=== PATIENT | female | born 1955 | race Caucasian/White ===

== ENCOUNTER 2022-01-04 10:46 | Emergency (ER) | payer OTHER, BC ==
--- OUTSIDE RECORDS SUMMARY | 2022-01-04 10:52 | XMS REPORT | Continuity of Care Document ---
:1955 Author Organization [facility] t Address [address] [place] [address] Dr. Del[address]. [address] [place] [address] Care Team Providers Name Role Phone Rodney Zavala MD Primary Care Physician Rodney Zavala MD Attending Clinician RODNEY ZAVALA Attending Clinician Unavailable Bridgett MÉNDEZ Attending Clinician Unavailable Bridgett Méndez MD Attending Clinician JOSÉ BORRERO Attending Clinician Unavailable Isaac TEXTURE ARTIST Attending Clinician ISAAC Attending Clinician Unavailable Lab, Fam Pob I Attending Clinician Unavailable José Borrero DO Attending Clinician Doctor Unassigned, Name Attending Clinician Unavailable 1, Lab Attending Clinician Unavailable Annemarie Petty MD Attending Clinician Pob1, Care Clinic Attending Clinician Unavailable Anene HAYLEY Attending Clinician RODNEY ZAVALA Admitting Clinician Unavailable Payers Payer Name Policy Type Policy Number Effective Date Expiration Date S ource Problems Condition Condition Condition Status Onset Resolution Last Treating Co mments Source Name Details Category Date Date Treatment Clinician Date Depression Depression Disease Active 2015-09 U nivers 0-25 ity of 00:00: [place] 00 [facility] S/P S/P Disease Active Univers arthroscop arthroscop 5-25 it y [place] [facility] Essential Essential Disease Active Uni vers hypertensi hypertensi 4-19 it y of on on 00:00: [place] 00 [facility] Allergies, Adverse Reactions, Alerts Allergy Allergy Status Severity Reaction(s) Onset Inactive Treating Comm ents Source Name Type Date Date Clinician Zoster Propensi Active Rash Univers Vaccine ty to 717 ity of Live adverse 00:00: [place] reaction 00 Medical s Branch ZOSTER DRUG Active Rash Univers VACCINE INGREDI 04-08 ity of LIVE 00:00: [place] 00 Medical Branch Citalopr Propensi Active Unknown - 2014-09 Uni vers am ty to See comments 09-24 ity of adverse 00:00: [place] reaction 00 Medical s Branch CITALOPR DRUG Active Unknown-Cmnt 2014-09 Un alicja AM INGREDI 09-24 ity of 00:00: Medical Branch Social History Social Habit Start Date Stop Date Quantity Comments Source Exposure to Not sure University of SARS-CoV-2 [facility] (event) Branch History of Cigarette Smoker Universi ty of tobacco use [facility] History SDOH University o f Alcohol Frequency [facility] edical Branch History SDOH University o f Alcohol Std [facility] Drinks Branch History SDOH University o f Alcohol Binge [place] [facility] Alcohol intake 2021-07-24 2021-07-24 0 /d University of 00:00:00 00:00:00 [facility] Tobacco use and 2015-11-08 2015-11-08 Never used Universit y of exposure 00:00:00 00:00:00 [facility] Tobacco Comment 2015-11-08 2015-11-08 smoked on and Univer sity of 00:00:00 00:00:00 off; quit 15 y [facility] Alcohol Comment 2015-11-08 2015-11-08 occasional Universit y of 00:00:00 00:00:00 [facility] Sex [birth year] Universit y of 00:00:00 00:00:00 [facility] Smoking Status Start Date Stop Date Source Former smoker 2021-01-23 00:00:00 2021-01-23 00:00:00 Universi ty of [facility] Medications Ordered Filled Start Stop Current Ordering Indication Dosage Frequency Signature Comments Components Source Medication Medication Date Date Medication? Clinician (SIG) Name Name atorblankatati Yes Take by Un alicja n calcium 4-06 mouth. ity of (ATORVASTAT 18:06: [place] IN ORAL) 48 Medical Branch atorvastati Yes Take by Un alicja n calcium 4-06 mouth. ity of (ATORVASTAT 18:06: [place] IN ORAL) 48 Medical Branch atorvastati Yes Take by Un alicja n calcium 4-06 mouth. ity of (ATORVASTAT 18:06: [place] IN ORAL) 48 Medical Branch atorvastati Yes Take by Un alicja n calcium 4-06 mouth. ity of (ATORVASTAT 18:06: [place] IN ORAL) 48 Medical Branch atorvastati Yes Take by Un alicja n calcium 4-06 mouth. ity of (ATORVASTAT 18:06: [place] IN ORAL) 48 Medical Branch atorvastati Yes Take by Un alicja n calcium 4-06 mouth. ity of (ATORVASTAT 18:06: [place] IN ORAL) 48 Medical Branch atorvastati Yes Take by Un alicja n calcium 4-06 mouth. ity of (ATORVASTAT 18:06: [place] IN ORAL) 48 Medical Branch atorvastati Yes Take by Un alicja n calcium 4-06 mouth. ity of (ATORVASTAT 18:06: [place] IN ORAL) 48 Medical Branch atorvastati Yes Take by Un alicja n calcium 4-06 mouth. ity of (ATORVASTAT 18:06: [place] IN ORAL) 48 Medical Branch atorvastati Yes Take by Un alicja n calcium 4-06 mouth. ity of (ATORVASTAT 13:06: [place] IN ORAL) 48 Medical Branch atorvastati Yes Take by Un alicja n calcium 4-06 mouth. ity of (ATORVASTAT 13:06: [place] IN ORAL) 48 Medical Branch atorvastati Yes Take by Un alicja n calcium 4-06 mouth. ity of (ATORVASTAT 13:06: [place] IN ORAL) 48 Medical Branch diazePAM 0 Yes [id number] 5mg Take 1 Uni vers (VALIUM) 5 4-06 tablet by ity of mg tablet 00:00: mouth 2 [place] 00 (two) Medical times Branch daily as needed for Agitation or Anxiety. diazePAM 2020-0 Yes [id number] 5mg Take 1 Uni vers (VALIUM) 5 4-06 tablet by ity of mg tablet 00:00: mouth (two) Medical times Branch daily as needed for Agitation or Anxiety. diazePAM 2020-0 Yes [id number] 5mg Take 1 Uni vers (VALIUM) 5 4-06 tablet by ity of mg tablet 00:00: mouth (two) Medical times Branch daily as needed for Agitation or Anxiety. diazePAM 2020-0 Yes [id number] 5mg Take 1 Uni vers (VALIUM) 5 4-06 tablet by ity of mg tablet 00:00: mouth (two) Medical times Branch daily as needed for Agitation or Anxiety. diazePAM 2020-0 Yes [id number] 5mg Take 1 Uni vers (VALIUM) 5 4-06 tablet by ity of mg tablet 00:00: mouth (two) Medical times Branch daily as needed for Agitation or Anxiety. diazePAM 2020-0 Yes [id number] 5mg Take 1 Uni vers (VALIUM) 5 4-06 tablet by ity of mg tablet 00:00: mouth (two) Medical times Branch daily as needed for Agitation or Anxiety. diazePAM 2020-0 Yes [id number] 5mg Take 1 Uni vers (VALIUM) 5 4-06 tablet by ity of mg tablet 00:00: mouth (two) Medical times Branch daily as needed for Agitation or Anxiety. diazePAM 2020-0 Yes [id number] 5mg Take 1 Uni vers (VALIUM) 5 4-06 tablet by ity of mg tablet 00:00: mouth (two) Medical times Branch daily as needed for Agitation or Anxiety. diazePAM 2020-0 Yes [id number] 5mg Take 1 Uni vers (VALIUM) 5 4-06 tablet by ity of mg tablet 00:00: mouth (two) Medical times Branch daily as needed for Agitation or Anxiety. diazePAM 1-0 Yes [id number] 5mg Take 1 Uni vers (VALIUM) 5 4-06 tablet by ity of mg tablet 00:00: mouth 2 (two) Medical times Branch daily as needed for Agitation or Anxiety. diazePAM 1-0 Yes [id number] 5mg Take 1 Uni vers (VALIUM) 5 4-06 tablet by ity of mg tablet 00:00: mouth 2 [place] 00 (two) Medical times Branch daily as needed for Agitation or Anxiety. diazePAM Yes Anxiety 5mg Take 1 Univ ers (VALIUM) 5 4-06 tablet by ity of mg tablet 00:00: mouth 2 [place] 00 (two) Medical times Branch daily as needed for Agitation or Anxiety. LISINOPRIL- 2019-0 Yes Essential 1{tbl} TAKE 1 Univers HYDROCHLORO 8-25 hypertensio TABLET BY ity of THIAZIDE 00:00: n MOUTH [place] 20-12.5 mg 00 EVERY Medical per tablet MORNING Branch LISINOPRIL- 2020-0 Yes [id number] 1{tbl} TAKE 1 Univers HYDROCHLORO 8-25 TABLET BY ity of THIAZIDE 00:00: MOUTH [place] 20-12.5 mg 00 EVERY Medical per tablet MORNING Branch LISINOPRIL- 2019-0 Yes [id number] 1{tbl} TAKE 1 Univers HYDROCHLORO 8-25 TABLET BY ity of THIAZIDE 00:00: MOUTH [place] 20-12.5 mg 00 EVERY Medical per tablet MORNING Branch LISINOPRIL- 2019-0 Yes [id number] 1{tbl} TAKE 1 Univers HYDROCHLORO 8-25 TABLET BY ity of THIAZIDE 00:00: MOUTH [place] 20-12.5 mg 00 EVERY Medical per tablet MORNING Branch LISINOPRIL- 2020-0 Yes [id number] 1{tbl} TAKE 1 Univers HYDROCHLORO 8-25 TABLET BY ity of THIAZIDE 00:00: MOUTH [place] 20-12.5 mg 00 EVERY Medical per tablet MORNING Branch LISINOPRIL- 2020-0 Yes [id number] 1{tbl} TAKE 1 Univers HYDROCHLORO 8-25 TABLET BY ity of THIAZIDE 00:00: MOUTH [place] 20-12.5 mg 00 EVERY Medical per tablet MORNING Branch LISINOPRIL- 2020-0 Yes [id number] 1{tbl} TAKE 1 Univers HYDROCHLORO 8-25 TABLET BY ity of THIAZIDE 00:00: MOUTH [place] 20-12.5 mg 00 EVERY Medical per tablet MORNING Branch LISINOPRIL- 2020-0 Yes [id number] 1{tbl} TAKE 1 Univers HYDROCHLORO 8-25 TABLET BY ity of THIAZIDE 00:00: MOUTH [place] 20-12.5 mg 00 EVERY Medical per tablet MORNING Branch LISINOPRIL- 2020-0 Yes [id number] 1{tbl} TAKE 1 Univers HYDROCHLORO 8-25 TABLET BY ity of THIAZIDE 00:00: MOUTH [place] 20-12.5 mg 00 EVERY Medical per tablet MORNING Branch LISINOPRIL- 2020-0 Yes [id number] 1{tbl} TAKE 1 Univers HYDROCHLORO 8-25 TABLET BY ity of THIAZIDE 00:00: MOUTH [place] 20-12.5 mg 00 EVERY Medical per tablet MORNING Branch LISINOPRIL- 2020-0 Yes [id number] 1{tbl} TAKE 1 Univers HYDROCHLORO 8-25 TABLET BY ity of THIAZIDE 00:00: MOUTH [place] 20-12.5 mg 00 EVERY Medical per tablet MORNING Branch LISINOPRIL- 2020-0 Yes [id number] 1{tbl} TAKE 1 Univers HYDROCHLORO 8-25 TABLET BY ity of THIAZIDE 00:00: MOUTH [place] 20-12.5 mg 00 EVERY Medical per tablet MORNING Branch LISINOPRIL- 2020-0 Yes [id number] 1{tbl} TAKE 1 Univers HYDROCHLORO 8-25 TABLET BY ity of THIAZIDE 00:00: MOUTH [place] 20-12.5 mg 00 EVERY Medical per tablet MORNING Branch LISINOPRIL- 2020-0 Yes [id number] 1{tbl} TAKE 1 Univers HYDROCHLORO 8-25 TABLET BY ity of THIAZIDE 00:00: MOUTH [place] 20-12.5 mg 00 EVERY Medical per tablet MORNING Branch LISINOPRIL- 2020-0 Yes [id number] 1{tbl} TAKE 1 Univers HYDROCHLORO 8-25 TABLET BY ity of THIAZIDE 00:00: MOUTH [place] 20-12.5 mg 00 EVERY Medical per tablet MORNING Branch LISINOPRIL- 2020-0 Yes [id number] 1{tbl} TAKE 1 Univers HYDROCHLORO 8-25 TABLET BY ity of THIAZIDE 00:00: MOUTH [place] 20-12.5 mg 00 EVERY Medical per tablet MORNING Branch LISINOPRIL- 2020-0 Yes [id number] 1{tbl} TAKE 1 Univers HYDROCHLORO 8-25 TABLET BY ity of THIAZIDE 00:00: MOUTH [place] 20-12.5 mg 00 EVERY Medical per tablet MORNING Branch LISINOPRIL- 2020-0 Yes [id number] 1{tbl} TAKE 1 Univers HYDROCHLORO 8-25 TABLET BY ity of THIAZIDE 00:00: MOUTH [place] 20-12.5 mg 00 EVERY Medical per tablet MORNING Branch LISINOPRIL- 2020-0 Yes [id number] 1{tbl} TAKE 1 Univers HYDROCHLORO 8-25 TABLET BY ity of THIAZIDE 00:00: MOUTH [place] 20-12.5 mg 00 EVERY Medical per tablet MORNING Branch LISINOPRIL- 2020-0 Yes [id number] 1{tbl} TAKE 1 Univers HYDROCHLORO 8-25 TABLET BY ity of THIAZIDE 00:00: MOUTH [place] 20-12.5 mg 00 EVERY Medical per tablet MORNING Branch LISINOPRIL- 2020-0 Yes [id number] 1{tbl} TAKE 1 Univers HYDROCHLORO 8-25 TABLET BY ity of THIAZIDE 00:00: MOUTH [place] 20-12.5 mg 00 EVERY Medical per tablet MORNING Branch LISINOPRIL- 2020-0 Yes [id number] 1{tbl} TAKE 1 Univers HYDROCHLORO 8-25 TABLET BY ity of THIAZIDE 00:00: MOUTH [place] 20-12.5 mg 00 EVERY Medical per tablet MORNING Branch LISINOPRIL- 2020-0 Yes [id number] 1{tbl} TAKE 1 Univers HYDROCHLORO 8-25 TABLET BY ity of THIAZIDE 00:00: MOUTH [place] 20-12.5 mg 00 EVERY Medical per tablet MORNING Branch LISINOPRIL- 2020-0 Yes [id number] 1{tbl} TAKE 1 Univers HYDROCHLORO 8-25 TABLET BY ity of THIAZIDE 00:00: MOUTH [place] 20-12.5 mg 00 EVERY Medical per tablet MORNING Branch LISINOPRIL- 2020-0 Yes [id number] 1{tbl} TAKE 1 Univers HYDROCHLORO 8-25 TABLET BY ity of THIAZIDE 00:00: MOUTH [place] 20-12.5 mg 00 EVERY Medical per tablet MORNING Branch LISINOPRIL- 2020-0 Yes [id number] 1{tbl} TAKE 1 Univers HYDROCHLORO 7-21 TABLET BY ity of THIAZIDE 00:00: MOUTH [place] 20-12.5 mg 00 EVERY Medical per tablet MORNING Branch LISINOPRIL- 2020-0 Yes [id number] 1{tbl} TAKE 1 Univers HYDROCHLORO 7-21 TABLET BY ity of THIAZIDE 00:00: MOUTH [place] 20-12.5 mg 00 EVERY Medical per tablet MORNING Branch LISINOPRIL- 2020-0 2020- No [id number] 1{tbl} TAKE 1 Univers HYDROCHLORO 7-21 08-25 TABLET BY it y of THIAZIDE 00:00: 00:00 MOUTH [place] 20-12.5 mg 00 :00 EVERY Medical per tablet MORNING Branch ciprofloxac 2019-0 2020- No [id number] 500mg Take 1 Univers in HCl 500 6-16 06-22 tablet by ity of mg tablet 00:00: 04:59 mouth [place] 00 :00 every 12 Medical (twelve) Branch hours for 5 days. ciprofloxac 2019-0 2020- No [id number] 500mg Take 1 Univers in HCl 500 6-16 06-22 tablet by ity of mg tablet 00:00: 04:59 mouth [place] 00 :00 every 12 Medical (twelve) Branch hours for 5 days. ciprofloxac 2019-0 2020- No [id number] 500mg Take 1 Univers in HCl 500 6-16 06-22 tablet by ity of mg tablet 00:00: 04:59 mouth [place] 00 :00 every 12 Medical (twelve) Branch hours for 5 days. LISINOPRIL- 2019-0 Yes [id number] 1{tbl} TAKE 1 Univers HYDROCHLORO 4-14 TABLET BY ity of THIAZIDE 00:00: MOUTH [place] 20-12.5 mg 00 EVERY Medical per tablet MORNING Branch LISINOPRIL- 2019-0 Yes [id number] 1{tbl} TAKE 1 Univers HYDROCHLORO 4-14 TABLET BY ity of THIAZIDE 00:00: MOUTH [place] 20-12.5 mg 00 EVERY Medical per tablet MORNING Branch LISINOPRIL- 2019-0 Yes [id number] 1{tbl} TAKE 1 Univers HYDROCHLORO 4-14 TABLET BY ity of THIAZIDE 00:00: MOUTH [place] 20-12.5 mg 00 EVERY Medical per tablet MORNING Branch LISINOPRIL- 2019-0 Yes [id number] 1{tbl} TAKE 1 Univers HYDROCHLORO 4-14 TABLET BY ity of THIAZIDE 00:00: MOUTH [place] 20-12.5 mg 00 EVERY Medical per tablet MORNING Branch LISINOPRIL- 2020-0 Yes [id number] 1{tbl} TAKE 1 Univers HYDROCHLORO 4-14 TABLET BY ity of THIAZIDE 00:00: MOUTH [place] 20-12.5 mg 00 EVERY Medical per tablet MORNING Branch LISINOPRIL- 2020-0 Yes [id number] 1{tbl} TAKE 1 Univers HYDROCHLORO 4-14 TABLET BY ity of THIAZIDE 00:00: MOUTH [place] 20-12.5 mg 00 EVERY Medical per tablet MORNING Branch LISINOPRIL- 2019-0 2020- No [id number] 1{tbl} TAKE 1 Univers HYDROCHLORO 4-14 07-21 TABLET BY it y of THIAZIDE 00:00: 00:00 MOUTH [place] 20-12.5 mg 00 :00 EVERY Medical per tablet MORNING Branch methylPREDN 2018-09 Yes [id number] 84mg Take 21 Univers ISolone 2-06 tablets by ity of (MEDROL, 00:00: mouth [place] CODY,) 4 mg 00 SEE-INSTRU Med ical tablets CTIONS. Branch follow package directions methylPREDN 2018-09 Yes [id number] 84mg Take 21 Univers ISolone 2-06 tablets by ity of (MEDROL, 00:00: mouth [place] CODY,) 4 mg 00 SEE-INSTRU Med ical tablets CTIONS. Branch follow package directions methylPREDN 2018-09 Yes [id number] 84mg Take 21 Univers ISolone 2-06 tablets by ity of (MEDROL, 00:00: mouth [place] CODY,) 4 mg 00 SEE-INSTRU Med ical tablets CTIONS. Branch follow package directions methylPREDN 2018-09 Yes [id number] 84mg Take 21 Univers ISolone 2-06 tablets by ity of (MEDROL, 00:00: mouth [place] CODY,) 4 mg 00 SEE-INSTRU Med ical tablets CTIONS. Branch follow package directions methylPREDN 2018-09 Yes [id number] 84mg Take 21 Univers ISolone 2-06 tablets by ity of (MEDROL, 00:00: mouth [place] CODY,) 4 mg 00 SEE-INSTRU Med ical tablets CTIONS. Branch follow package directions methylPREDN 2018-09 Yes [id number] 84mg Take 21 Univers ISolone 2-06 tablets by ity of (MEDROL, 00:00: mouth [place] CODY,) 4 mg 00 SEE-INSTRU Med ical tablets CTIONS. Branch follow package directions methylPREDN 2018-09 Yes [id number] 84mg Take 21 Univers ISolone 2-06 tablets by ity of (MEDROL, 00:00: mouth [place] CODY,) 4 mg 00 SEE-INSTRU Med ical tablets CTIONS. Branch follow package directions methylPREDN 2018-09 Yes [id number] 84mg Take 21 Univers ISolone 2-06 tablets by ity of (MEDROL, 00:00: mouth [place] CODY,) 4 mg 00 SEE-INSTRU Med ical tablets CTIONS. Branch follow package directions methylPREDN 2018-09 Yes [id number] 84mg Take 21 Univers ISolone 2-06 tablets by ity of (MEDROL, 00:00: mouth [place] CODY,) 4 mg 00 SEE-INSTRU Med ical tablets CTIONS. Branch follow package directions methylPREDN 2018-09 Yes [id number] 84mg Take 21 Univers ISolone 2-06 tablets by ity of (MEDROL, 00:00: mouth [place] CODY,) 4 mg 00 SEE-INSTRU Med ical tablets CTIONS. Branch follow package directions methylPREDN 2018-09 Yes [id number] 84mg Take 21 Univers ISolone 2-06 tablets by ity of (MEDROL, 00:00: mouth [place] CODY,) 4 mg 00 SEE-INSTRU Med ical tablets CTIONS. Branch follow package directions methylPREDN 2018-09 Yes [id number] 84mg Take 21 Univers ISolone 2-06 tablets by ity of (MEDROL, 00:00: mouth [place] CODY,) 4 mg 00 SEE-INSTRU Med ical tablets CTIONS. Branch follow package directions methylPREDN 2018-09 Yes [id number] 84mg Take 21 Univers ISolone 2-06 tablets by ity of (MEDROL, 00:00: mouth [place] CODY,) 4 mg 00 SEE-INSTRU Med ical tablets CTIONS. Branch follow package directions methylPREDN 2018-09 Yes [id number] 84mg Take 21 Univers ISolone 2-06 tablets by ity of (MEDROL, 00:00: mouth [place] CODY,) 4 mg 00 SEE-INSTRU Med ical tablets CTIONS. Branch follow package directions methylPREDN 2018-09 Yes [id number] 84mg Take 21 Univers ISolone 2-06 tablets by ity of (MEDROL, 00:00: mouth [place] CODY,) 4 mg 00 SEE-INSTRU Med ical tablets CTIONS. Branch follow package directions methylPREDN 2018-09 Yes [id number] 84mg Take 21 Univers ISolone 2-06 tablets by ity of (MEDROL, 00:00: mouth [place] CODY,) 4 mg 00 SEE-INSTRU Med ical tablets CTIONS. Branch follow package directions methylPREDN 2018-09 Yes [id number] 84mg Take 21 Univers ISolone 2-06 tablets by ity of (MEDROL, 00:00: mouth [place] CODY,) 4 mg 00 SEE-INSTRU Med ical tablets CTIONS. Branch follow package directions methylPREDN 2018-09 Yes [id number] 84mg Take 21 Univers ISolone 2-06 tablets by ity of (MEDROL, 00:00: mouth [place] CODY,) 4 mg 00 SEE-INSTRU Med ical tablets CTIONS. Branch follow package directions methylPREDN 2018-09 Yes [id number] 84mg Take 21 Univers ISolone 2-06 tablets by ity of (MEDROL, 00:00: mouth [place] CODY,) 4 mg 00 SEE-INSTRU Med ical tablets CTIONS. Branch follow package directions methylPREDN 2018-09 Yes [id number] 84mg Take 21 Univers ISolone 2-06 tablets by ity of (MEDROL, 00:00: mouth [place] CODY,) 4 mg 00 SEE-INSTRU Med ical tablets CTIONS. Branch follow package directions methylPREDN 2018-09 Yes [id number] 84mg Take 21 Univers ISolone 2-06 tablets by ity of (MEDROL, 00:00: mouth [place] CODY,) 4 mg 00 SEE-INSTRU Med ical tablets CTIONS. Branch follow package directions methylPREDN 2018-09 Yes [id number] 84mg Take 21 Univers ISolone 2-06 tablets by ity of (MEDROL, 00:00: mouth [place] CODY,) 4 mg 00 SEE-INSTRU Med ical tablets CTIONS. Branch follow package directions methylPREDN 2018-09 Yes [id number] 84mg Take 21 Univers ISolone 2-06 tablets by ity of (MEDROL, 00:00: mouth [place] CODY,) 4 mg 00 SEE-INSTRU Med ical tablets CTIONS. Branch follow package directions methylPREDN 2018-09- No [id number] 84mg Take 21 Univers ISolone 2-06 04-06 tablets by ity o f (MEDROL, 00:00: 00:00 mouth [place] CODY,) 4 mg 00 :00 SEE-INSTRU Med ical tablets CTIONS. Branch follow package directions methylPREDN 2018-09- No [id number] 84mg Take 21 Univers ISolone 2-06 04-06 tablets by ity o f (MEDROL, 00:00: 00:00 mouth [place] CODY,) 4 mg 00 :00 SEE-INSTRU Med ical tablets CTIONS. Branch follow package directions ciprofloxac 2019-0 Yes [id number] 500mg Take 1 Univers in HCl 7-23 tablet by ity of (CIPRO) 500 00:00: mouth [place] mg tablet 00 every 12 Medica l (twelve) Branch hours. metroNIDAZO 2019-0 Yes [id number] 500mg Take 1 Univers LE 500 mg 7-23 tablet by ity o f tablet 00:00: mouth [place] 00 every 8 Medical (eight) Branch hours. ciprofloxac 2019-0 Yes [id number] 500mg Take 1 Univers in HCl 7-23 tablet by ity of (CIPRO) 500 00:00: mouth [place] mg tablet 00 every 12 Medica l (twelve) Branch hours. metroNIDAZO 2019-0 Yes [id number] 500mg Take 1 Univers LE 500 mg 7-23 tablet by ity o f tablet 00:00: mouth [place] 00 every 8 Medical (eight) Branch hours. ciprofloxac 2019-0 Yes [id number] 500mg Take 1 Univers in HCl 7-23 tablet by ity of (CIPRO) 500 00:00: mouth [place] mg tablet 00 every 12 Medica l (twelve) Branch hours. metroNIDAZO 2019-0 Yes [id number] 500mg Take 1 Univers LE 500 mg 7-23 tablet by ity o f tablet 00:00: mouth [place] 00 every 8 Medical (eight) Branch hours. ciprofloxac 2019-0 Yes [id number] 500mg Take 1 Univers in HCl 7-23 tablet by ity of (CIPRO) 500 00:00: mouth [place] mg tablet 00 every 12 Medica l (twelve) Branch hours. metroNIDAZO 2019-0 Yes [id number] 500mg Take 1 Univers LE 500 mg 7-23 tablet by ity o f tablet 00:00: mouth [place] 00 every 8 Medical (eight) Branch hours. ciprofloxac 2019-0 Yes [id number] 500mg Take 1 Univers in HCl 7-23 tablet by ity of (CIPRO) 500 00:00: mouth [place] mg tablet 00 every 12 Medica l (twelve) Branch hours. metroNIDAZO 2019-0 Yes [id number] 500mg Take 1 Univers LE 500 mg 7-23 tablet by ity o f tablet 00:00: mouth [place] 00 every 8 Medical (eight) Branch hours. ciprofloxac 2019-0 Yes [id number] 500mg Take 1 Univers in HCl 7-23 tablet by ity of (CIPRO) 500 00:00: mouth [place] mg tablet 00 every 12 Medica l (twelve) Branch hours. metroNIDAZO 2019-0 Yes [id number] 500mg Take 1 Univers LE 500 mg 7-23 tablet by ity o f tablet 00:00: mouth [place] 00 every 8 Medical (eight) Branch hours. ciprofloxac 2019-0 Yes [id number] 500mg Take 1 Univers in HCl 7-23 tablet by ity of (CIPRO) 500 00:00: mouth [place] mg tablet 00 every 12 Medica l (twelve) Branch hours. metroNIDAZO 2019-0 Yes [id number] 500mg Take 1 Univers LE 500 mg 7-23 tablet by ity o f tablet 00:00: mouth [place] 00 every 8 Medical (eight) Branch hours. ciprofloxac 2019-0 Yes [id number] 500mg Take 1 Univers in HCl 7-23 tablet by ity of (CIPRO) 500 00:00: mouth [place] mg tablet 00 every 12 Medica l (twelve) Branch hours. metroNIDAZO 2019-0 Yes [id number] 500mg Take 1 Univers LE 500 mg 7-23 tablet by ity o f tablet 00:00: mouth [place] 00 every 8 Medical (eight) Branch hours. ciprofloxac 2019-0 Yes [id number] 500mg Take 1 Univers in HCl 7-23 tablet by ity of (CIPRO) 500 00:00: mouth [place] mg tablet 00 every 12 Medica l (twelve) Branch hours. metroNIDAZO 2019-0 Yes [id number] 500mg Take 1 Univers LE 500 mg 7-23 tablet by ity o f tablet 00:00: mouth [place] 00 every 8 Medical (eight) Branch hours. ciprofloxac 2019-0 Yes [id number] 500mg Take 1 Univers in HCl 7-23 tablet by ity of (CIPRO) 500 00:00: mouth [place] mg tablet 00 every 12 Medica l (twelve) Branch hours. metroNIDAZO 2019-0 Yes [id number] 500mg Take 1 Univers LE 500 mg 7-23 tablet by ity o f tablet 00:00: mouth [place] 00 every 8 Medical (eight) Branch hours. ciprofloxac 2019-0 Yes [id number] 500mg Take 1 Univers in HCl 7-23 tablet by ity of (CIPRO) 500 00:00: mouth [place] mg tablet 00 every 12 Medica l (twelve) Branch hours. metroNIDAZO 2019-0 Yes [id number] 500mg Take 1 Univers LE 500 mg 7-23 tablet by ity o f tablet 00:00: mouth [place] 00 every 8 Medical (eight) Branch hours. ciprofloxac 2019-0 Yes [id number] 500mg Take 1 Univers in HCl 7-23 tablet by ity of (CIPRO) 500 00:00: mouth [place] mg tablet 00 every 12 Medica l (twelve) Branch hours. metroNIDAZO 2019-0 Yes [id number] 500mg Take 1 Univers LE 500 mg 7-23 tablet by ity o f tablet 00:00: mouth [place] 00 every 8 Medical (eight) Branch hours. ciprofloxac 2019-0 Yes [id number] 500mg Take 1 Univers in HCl 7-23 tablet by ity of (CIPRO) 500 00:00: mouth [place] mg tablet 00 every 12 Medica l (twelve) Branch hours. metroNIDAZO 2019-0 Yes [id number] 500mg Take 1 Univers LE 500 mg 7-23 tablet by ity o f tablet 00:00: mouth [place] 00 every 8 Medical (eight) Branch hours. ciprofloxac 2019-0 Yes [id number] 500mg Take 1 Univers in HCl 7-23 tablet by ity of (CIPRO) 500 00:00: mouth [place] mg tablet 00 every 12 Medica l (twelve) Branch hours. metroNIDAZO 2019-0 Yes [id number] 500mg Take 1 Univers LE 500 mg 7-23 tablet by ity o f tablet 00:00: mouth [place] 00 every 8 Medical (eight) Branch hours. ciprofloxac 2019-0 Yes [id number] 500mg Take 1 Univers in HCl 7-23 tablet by ity of (CIPRO) 500 00:00: mouth [place] mg tablet 00 every 12 Medica l (twelve) Branch hours. metroNIDAZO 2019-0 Yes [id number] 500mg Take 1 Univers LE 500 mg 7-23 tablet by ity o f tablet 00:00: mouth [place] 00 every 8 Medical (eight) Branch hours. ciprofloxac 2019-0 Yes [id number] 500mg Take 1 Univers in HCl 7-23 tablet by ity of (CIPRO) 500 00:00: mouth [place] mg tablet 00 every 12 Medica l (twelve) Branch hours. metroNIDAZO 2019-0 Yes [id number] 500mg Take 1 Univers LE 500 mg 7-23 tablet by ity o f tablet 00:00: mouth [place] 00 every 8 Medical (eight) Branch hours. ciprofloxac 2019-0 Yes [id number] 500mg Take 1 Univers in HCl 7-23 tablet by ity of (CIPRO) 500 00:00: mouth [place] mg tablet 00 every 12 Medica l (twelve) Branch hours. metroNIDAZO 2019-0 Yes [id number] 500mg Take 1 Univers LE 500 mg 7-23 tablet by ity o f tablet 00:00: mouth [place] 00 every 8 Medical (eight) Branch hours. ciprofloxac 2019-0 Yes [id number] 500mg Take 1 [facility] in HCl 7-23 tablet by ity of (CIPRO) 500 00:00: mouth [place] mg tablet 00 every 12 Medica l (twelve) Branch hours. metroNIDAZO 2019-0 Yes [id number] 500mg Take 1 [facility] LE 500 mg 7-23 tablet by ity o f tablet 00:00: mouth [place] 00 every 8 Medical (eight) Branch hours. ciprofloxac 2019-0 Yes [id number] 500mg Take 1 [facility] in HCl 7-23 tablet by ity of (CIPRO) 500 00:00: mouth [place] mg tablet 00 every 12 Medica l (twelve) Branch hours. metroNIDAZO 2019-0 Yes [id number] 500mg Take 1 [facility] LE 500 mg 7-23 tablet by ity o f tablet 00:00: mouth [place] 00 every 8 Medical (eight) Branch hours. ciprofloxac 2019-0 Yes [id number] 500mg Take 1 [facility] in HCl 7-23 tablet by ity of (CIPRO) 500 00:00: mouth [place] mg tablet 00 every 12 Medica l (twelve) Branch hours. metroNIDAZO 2019-0 Yes [id number] 500mg Take 1 [facility] LE 500 mg 7-23 tablet by ity o f tablet 00:00: mouth [place] 00 every 8 Medical (eight) Branch hours. ciprofloxac 2019-0 Yes [id number] 500mg Take 1 [facility] in HCl 7-23 tablet by ity of (CIPRO) 500 00:00: mouth [place] mg tablet 00 every 12 Medica l (twelve) Branch hours. metroNIDAZO 2019-0 Yes [id number] 500mg Take 1 [facility] LE 500 mg 7-23 tablet by ity o f tablet 00:00: mouth [place] 00 every 8 Medical (eight) Branch hours. ciprofloxac 2019-0 Yes [id number] 500mg Take 1 [facility] in HCl 7-23 tablet by ity of (CIPRO) 500 00:00: mouth [place] mg tablet 00 every 12 Medica l (twelve) Branch hours. metroNIDAZO 2019-0 Yes [id number] 500mg Take 1 [facility] LE 500 mg 7-23 tablet by ity o f tablet 00:00: mouth [place] 00 every 8 Medical (eight) Branch hours. ciprofloxac 2019-0 Yes [id number] 500mg Take 1 [facility] in HCl 7-23 tablet by ity of (CIPRO) 500 00:00: mouth [place] mg tablet 00 every 12 Medica l (twelve) Branch hours. metroNIDAZO 2019-0 Yes [id number] 500mg Take 1 [facility] LE 500 mg 7-23 tablet by ity o f tablet 00:00: mouth [place] 00 every 8 Medical (eight) Branch hours. ciprofloxac 2018-0 Yes [id number] 500mg Take 1 [facility] in HCl 7-23 tablet by ity of (CIPRO) 500 00:00: mouth [place] mg tablet 00 every 12 Medica l (twelve) Branch hours. metroNIDAZO 2019-0 Yes [id number] 500mg Take 1 [facility] LE 500 mg 7-23 tablet by ity o f tablet 00:00: mouth [place] 00 every 8 Medical (eight) Branch hours. ciprofloxac 2018-0 Yes [id number] 500mg Take 1 [facility] in HCl 7-23 tablet by ity of (CIPRO) 500 00:00: mouth [place] mg tablet 00 every 12 Medica l (twelve) Branch hours. metroNIDAZO 2019-0 Yes [id number] 500mg Take 1 [facility] LE 500 mg 7-23 tablet by ity o f tablet 00:00: mouth [place] 00 every 8 Medical (eight) Branch hours. ciprofloxac 2019-0 Yes [id number] 500mg Take 1 [facility] in HCl 7-23 tablet by ity of (CIPRO) 500 00:00: mouth [place] mg tablet 00 every 12 Medica l (twelve) Branch hours. metroNIDAZO 2019-0 Yes [id number] 500mg Take 1 [facility] LE 500 mg 7-23 tablet by ity o f tablet 00:00: mouth [place] 00 every 8 Medical (eight) Branch hours. ciprofloxac 2019-0 2020- No [id number] 500mg Take 1 [facility] in HCl 04-14-06 tablet by ity of (CIPRO) 500 00:00: 00:[place] tablet 00 :00 every 12 Medica l (twelve) Branch hours. metroNIDAZO 2020- No [id number] 500mg Take 1 [facility] LE 500 mg 04-14-06 tablet by ity of tablet 00:00: 00:00 mouth [place] 00 :00 every 8 Medical (eight) Branch hours. ciprofloxac 2020- No [id number] 500mg Take 1 [facility] in HCl 04-14- tablet by ity of (CIPRO) 500 00:00: 00:[place] tablet 00 :00 every 12 Medica l (twelve) Branch hours. metroNIDAZO 2020- No [id number] 500mg Take 1 [facility] LE 500 mg 04-14-06 tablet by ity of tablet 00:00: 00:00 mouth [place] 00 :00 every 8 Medical (eight) Branch hours. loperamide Yes [id number] 2mg Take 1 U nivers (IMODIUM 7-11 capsule by ity o f A-D) 2 mg 00:00: mouth [place] capsule 00 every 4 Medical (four) Branch hours as needed for Diarrhea. ranitidine Yes [id number] 150mg Take 1 Univers (ZANTAC) 7-11 tablet by ity of 150 mg 00:00: mouth 2 [place] tablet 00 (two) Medical times Branch daily. Follow up with your MD for further evaluation and treatment. loperamide Yes [id number] 2mg Take 1 U nivers (IMODIUM 7-11 capsule by ity o f A-D) 2 mg 00:00: mouth [place] capsule 00 every 4 Medical (four) Branch hours as needed for Diarrhea. ranitidine Yes [id number] 150mg Take 1 [facility] (ZANTAC) 7-11 tablet by ity of 150 mg 00:00: mouth 2 [place] tablet 00 (two) Medical times Branch daily. Follow up with your MD for further evaluation and treatment. loperamide Yes [id number] 2mg Take 1 U nivers (IMODIUM 7-11 capsule by ity o f A-D) 2 mg 00:00: mouth [place] capsule 00 every 4 Medical (four) Branch hours as needed for Diarrhea. ranitidine 2018-0 Yes [id number] 150mg Take 1 [facility] (ZANTAC) 7-11 tablet by ity of 150 mg 00:00: mouth 2 [place] tablet 00 (two) Medical times Branch daily. Follow up with your MD for further evaluation and treatment. loperamide 2018- Yes [id number] 2mg Take 1 U nivers (IMODIUM 7-11 capsule by ity o f A-D) 2 mg 00:00: mouth [place] capsule 00 every 4 Medical (four) Branch hours as needed for Diarrhea. ranitidine 2018-0 Yes [id number] 150mg Take 1 [facility] (ZANTAC) 7-11 tablet by ity of 150 mg 00:00: mouth 2 [place] tablet 00 (two) Medical times Branch daily. Follow up with your MD for further evaluation and treatment. loperamide Yes [id number] 2mg Take 1 U nivers (IMODIUM 7-11 capsule by ity o f A-D) 2 mg 00:00: mouth [place] capsule 00 every 4 Medical (four) Branch hours as needed for Diarrhea. ranitidine 2018-0 Yes [id number] 150mg Take 1 [facility] (ZANTAC) 7-11 tablet by ity of 150 mg 00:00: mouth 2 [place] tablet 00 (two) Medical times Branch daily. Follow up with your MD for further evaluation and treatment. loperamide 2018-0 Yes [id number] 2mg Take 1 U nivers (IMODIUM 7-11 capsule by ity o f A-D) 2 mg 00:00: mouth [place] capsule 00 every 4 Medical (four) Branch hours as needed for Diarrhea. ranitidine 2018-0 Yes [id number] 150mg Take 1 [facility] (ZANTAC) 7-11 tablet by ity of 150 mg 00:00: mouth 2 [place] tablet 00 (two) Medical times Branch daily. Follow up with your MD for further evaluation and treatment. loperamide 2018-0 Yes [id number] 2mg Take 1 U nivers (IMODIUM 7-11 capsule by ity o f A-D) 2 mg 00:00: mouth [place] capsule 00 every 4 Medical (four) Branch hours as needed for Diarrhea. ranitidine 2018-0 Yes [id number] 150mg Take 1 [facility] (ZANTAC) 7-11 tablet by ity of 150 mg 00:00: mouth 2 [place] tablet 00 (two) Medical times Branch daily. Follow up with your MD for further evaluation and treatment. loperamide 2018-0 Yes [id number] 2mg Take 1 U nivers (IMODIUM 7-11 capsule by ity o f A-D) 2 mg 00:00: mouth [place] capsule 00 every 4 Medical (four) Branch hours as needed for Diarrhea. ranitidine 2018-0 Yes [id number] 150mg Take 1 [facility] (ZANTAC) 7-11 tablet by ity of 150 mg 00:00: mouth 2 [place] tablet 00 (two) Medical times Branch daily. Follow up with your MD for further evaluation and treatment. loperamide 2018- Yes [id number] 2mg Take 1 U nivers (IMODIUM 7-11 capsule by ity o f A-D) 2 mg 00:00: mouth [place] capsule 00 every 4 Medical (four) Branch hours as needed for Diarrhea. ranitidine 2018-0 Yes [id number] 150mg Take 1 [facility] (ZANTAC) 7-11 tablet by ity of 150 mg 00:00: mouth 2 [place] tablet 00 (two) Medical times Branch daily. Follow up with your MD for further evaluation and treatment. loperamide 2018- Yes [id number] 2mg Take 1 U nivers (IMODIUM 7-11 capsule by ity o f A-D) 2 mg 00:00: mouth [place] capsule 00 every 4 Medical (four) Branch hours as needed for Diarrhea. ranitidine 2018-0 Yes [id number] 150mg Take 1 [facility] (ZANTAC) 7-11 tablet by ity of 150 mg 00:00: mouth 2 [place] tablet 00 (two) Medical times Branch daily. Follow up with your MD for further evaluation and treatment. loperamide 2018-0 Yes [id number] 2mg Take 1 U nivers (IMODIUM 7-11 capsule by ity o f A-D) 2 mg 00:00: mouth [place] capsule 00 every 4 Medical (four) Branch hours as needed for Diarrhea. ranitidine 2019-0 Yes [id number] 150mg Take 1 [facility] (ZANTAC) 7-11 tablet by ity of 150 mg 00:00: mouth 2 [place] tablet 00 (two) Medical times Branch daily. Follow up with your MD for further evaluation and treatment. loperamide 2018-0 Yes [id number] 2mg Take 1 U nivers (IMODIUM 7-11 capsule by ity o f A-D) 2 mg 00:00: mouth [place] capsule 00 every 4 Medical (four) Branch hours as needed for Diarrhea. ranitidine 2018-0 Yes [id number] 150mg Take 1 [facility] (ZANTAC) 7-11 tablet by ity of 150 mg 00:00: mouth 2 [place] tablet 00 (two) Medical times Branch daily. Follow up with your MD for further evaluation and treatment. loperamide 2018-0 Yes [id number] 2mg Take 1 U nivers (IMODIUM 7-11 capsule by ity o f A-D) 2 mg 00:00: mouth [place] capsule 00 every 4 Medical (four) Branch hours as needed for Diarrhea. ranitidine 2018-0 Yes [id number] 150mg Take 1 [facility] (ZANTAC) 7-11 tablet by ity of 150 mg 00:00: mouth 2 [place] tablet 00 (two) Medical times Branch daily. Follow up with your MD for further evaluation and treatment. loperamide 2018- Yes [id number] 2mg Take 1 U nivers (IMODIUM 7-11 capsule by ity o f A-D) 2 mg 00:00: mouth [place] capsule 00 every 4 Medical (four) Branch hours as needed for Diarrhea. ranitidine 2018-0 Yes [id number] 150mg Take 1 [facility] (ZANTAC) 7-11 tablet by ity of 150 mg 00:00: mouth 2 [place] tablet 00 (two) Medical times Branch daily. Follow up with your MD for further evaluation and treatment. loperamide 2018-0 Yes [id number] 2mg Take 1 U nivers (IMODIUM 7-11 capsule by ity o f A-D) 2 mg 00:00: mouth [place] capsule 00 every 4 Medical (four) Branch hours as needed for Diarrhea. ranitidine 2018-0 Yes [id number] 150mg Take 1 [facility] (ZANTAC) 7-11 tablet by ity of 150 mg 00:00: mouth 2 [place] tablet 00 (two) Medical times Branch daily. Follow up with your MD for further evaluation and treatment. loperamide 2018-0 Yes [id number] 2mg Take 1 U nivers (IMODIUM 7-11 capsule by ity o f A-D) 2 mg 00:00: mouth [place] capsule 00 every 4 Medical (four) Branch hours as needed for Diarrhea. ranitidine 2018-0 Yes [id number] 150mg Take 1 [facility] (ZANTAC) 7-11 tablet by ity of 150 mg 00:00: mouth 2 [place] tablet 00 (two) Medical times Branch daily. Follow up with your MD for further evaluation and treatment. loperamide 2018-0 Yes [id number] 2mg Take 1 U nivers (IMODIUM 7-11 capsule by ity o f A-D) 2 mg 00:00: mouth [place] capsule 00 every 4 Medical (four) Branch hours as needed for Diarrhea. ranitidine 2018-0 Yes [id number] 150mg Take 1 [facility] (ZANTAC) 7-11 tablet by ity of 150 mg 00:00: mouth 2 [place] tablet 00 (two) Medical times Branch daily. Follow up with your MD for further evaluation and treatment. loperamide 2018-0 Yes [id number] 2mg Take 1 U nivers (IMODIUM 7-11 capsule by ity o f A-D) 2 mg 00:00: mouth [place] capsule 00 every 4 Medical (four) Branch hours as needed for Diarrhea. ranitidine 2018-0 Yes [id number] 150mg Take 1 [facility] (ZANTAC) 7-11 tablet by ity of 150 mg 00:00: mouth 2 [place] tablet 00 (two) Medical times Branch daily. Follow up with your MD for further evaluation and treatment. loperamide 2018-0 Yes [id number] 2mg Take 1 U nivers (IMODIUM 7-11 capsule by ity o f A-D) 2 mg 00:00: mouth [place] capsule 00 every 4 Medical (four) Branch hours as needed for Diarrhea. ranitidine 2018-0 Yes [id number] 150mg Take 1 [facility] (ZANTAC) 7-11 tablet by ity of 150 mg 00:00: mouth 2 [place] tablet 00 (two) Medical times Branch daily. Follow up with your MD for further evaluation and treatment. loperamide 2018-0 Yes [id number] 2mg Take 1 U nivers (IMODIUM 7-11 capsule by ity o f A-D) 2 mg 00:00: mouth [place] capsule 00 every 4 Medical (four) Branch hours as needed for Diarrhea. ranitidine 2019-0 Yes [id number] 150mg Take 1 [facility] (ZANTAC) 7-11 tablet by ity of 150 mg 00:00: mouth 2 [place] tablet 00 (two) Medical times Branch daily. Follow up with your MD for further evaluation and treatment. loperamide 2018-0 Yes [id number] 2mg Take 1 U nivers (IMODIUM 7-11 capsule by ity o f A-D) 2 mg 00:00: mouth [place] capsule 00 every 4 Medical (four) Branch hours as needed for Diarrhea. ranitidine 2018-0 Yes [id number] 150mg Take 1 [facility] (ZANTAC) 7-11 tablet by ity of 150 mg 00:00: mouth 2 [place] tablet 00 (two) Medical times Branch daily. Follow up with your MD for further evaluation and treatment. loperamide Yes [id number] 2mg Take 1 U nivers (IMODIUM 7-11 capsule by ity o f A-D) 2 mg 00:00: mouth [place] capsule 00 every 4 Medical (four) Branch hours as needed for Diarrhea. ranitidine 0 Yes [id number] 150mg Take 1 [facility] (ZANTAC) 7-11 tablet by ity of 150 mg 00:00: mouth 2 [place] tablet 00 (two) Medical times Branch daily. Follow up with your MD for further evaluation and treatment. loperamide Yes [id number] 2mg Take 1 U nivers (IMODIUM 7-11 capsule by ity o f A-D) 2 mg 00:00: mouth [place] capsule 00 every 4 Medical (four) Branch hours as needed for Diarrhea. ranitidine 0 Yes [id number] 150mg Take 1 [facility] (ZANTAC) 7-11 tablet by ity of 150 mg 00:00: mouth 2 [place] tablet 00 (two) Medical times Branch daily. Follow up with your MD for further evaluation and treatment. loperamide 2018-0 Yes [id number] 2mg Take 1 U nivers (IMODIUM 7-11 capsule by ity o f A-D) 2 mg 00:00: mouth [place] capsule 00 every 4 Medical (four) Branch hours as needed for Diarrhea. ranitidine 2018-0 Yes [id number] 150mg Take 1 [facility] (ZANTAC) 7-11 tablet by ity of 150 mg 00:00: mouth 2 [place] tablet 00 (two) Medical times Branch daily. Follow up with your MD for further evaluation and treatment. loperamide 2018-0 Yes [id number] 2mg Take 1 U nivers (IMODIUM 7-11 capsule by ity o f A-D) 2 mg 00:00: mouth [place] capsule 00 every 4 Medical (four) Branch hours as needed for Diarrhea. ranitidine Yes [id number] 150mg Take 1 [facility] (ZANTAC) 7-11 tablet by ity of 150 mg 00:00: mouth 2 [place] tablet 00 (two) Medical times Branch daily. Follow up with your MD for further evaluation and treatment. loperamide Yes [id number] 2mg Take 1 U nivers (IMODIUM 7-11 capsule by ity o f A-D) 2 mg 00:00: mouth [place] capsule 00 every 4 Medical (four) Branch hours as needed for Diarrhea. ranitidine Yes [id number] 150mg Take 1 [facility] (ZANTAC) 7-11 tablet by ity of 150 mg 00:00: mouth 2 [place] tablet 00 (two) Medical times Branch daily. Follow up with your MD for further evaluation and treatment. loperamide 2020- No [id number] 2mg Take 1 [facility] (IMODIUM 7-11 04-06 capsule by ity of A-D) 2 mg 00:00: 00:00 mouth [place] capsule 00 :00 every 4 Medical (four) Branch hours as needed for Diarrhea. ranitidine 2020- No [id number] 150mg Take 1 [facility] (ZANTAC) 7-11 04-06 tablet by ity o f 150 mg 00:00: 00:00 mouth 2 [place] tablet 00 :00 (two) Medical times Branch daily. Follow up with your MD for further evaluation and treatment. loperamide 2020- No [id number] 2mg Take 1 [facility] (IMODIUM 7-11 04-06 capsule by ity of A-D) 2 mg 00:00: 00:00 mouth [place] capsule 00 :00 every 4 Medical (four) Branch hours as needed for Diarrhea. ranitidine 2020- No [id number] 150mg Take 1 [facility] (ZANTAC) 7-11 04-06 tablet by ity o f 150 mg 00:00: 00:00 mouth 2 [place] tablet 00 :00 (two) Medical times Branch daily. Follow up with your MD for further evaluation and treatment. DULoxetine Yes [id number] 30mg Take 1 U nivers 30 mg 4-01 capsule by ity of capsule 00:00: mouth [place] 00 daily. Medical Branch DULoxetine Yes [id number] 30mg Take 1 U nivers 30 mg 4-01 capsule by ity of capsule 00:00: mouth [place] 00 daily. [facility] DULoxetine Yes [id number] 30mg Take 1 U nivers 30 mg 4-01 capsule by ity of capsule 00:00: mouth [place] 00 daily. [facility] lisinopril- Yes [id number] 1{tbl} Take 1 [facility] hydrochloro 4-01 tablet by ity of thiazide 00:00: mouth [place] 20-12.5 mg 00 every Medical per tablet morning. [facility] DULoxetine Yes [id number] 30mg Take 1 U nivers 30 mg 4-01 capsule by ity of capsule 00:00: mouth [place] 00 daily. [facility] lisinopril- Yes [id number] 1{tbl} Take 1 [facility] hydrochloro 4-01 tablet by ity of thiazide 00:00: mouth [place] 20-12.5 mg 00 every Medical per tablet morning. [facility] DULoxetine Yes [id number] 30mg Take 1 U nivers 30 mg 4-01 capsule by ity of capsule 00:00: mouth [place] 00 daily. [facility] lisinopril- Yes [id number] 1{tbl} Take 1 [facility] hydrochloro 4-01 tablet by ity of thiazide 00:00: mouth [place] 20-12.5 mg 00 every Medical per tablet morning. [facility] DULoxetine Yes [id number] 30mg Take 1 U nivers 30 mg 4-01 capsule by ity of capsule 00:00: mouth [place] 00 daily. [facility] lisinopril- Yes [id number] 1{tbl} Take 1 [facility] hydrochloro 4-01 tablet by ity of thiazide 00:00: mouth [place] 20-12.5 mg 00 every Medical per tablet morning. [facility] DULoxetine Yes [id number] 30mg Take 1 U nivers 30 mg 4-01 capsule by ity of capsule 00:00: mouth [place] 00 daily. [facility] lisinopril- Yes [id number] 1{tbl} Take 1 [facility] hydrochloro 4-01 tablet by ity of thiazide 00:00: mouth [place] 20-12.5 mg 00 every Medical per tablet morning. [facility] DULoxetine Yes [id number] 30mg Take 1 U nivers 30 mg 4- capsule by ity of capsule 00:00: mouth [place] 00 daily. Medical Branch DULoxetine 2019- No [id number] 30mg Take 1 [facility] 30 mg 4-09 28-16 capsule by ity of capsule 00:00: 00:00 mouth [place] 00 :00 daily. Medical Branch DULoxetine 2019- No [id number] 30mg Take 1 [facility] 30 mg 4-09 28-16 capsule by ity of capsule 00:00: 00:00 mouth [place] 00 :00 daily. Medical Branch DULoxetine 2019- No [id number] 30mg Take 1 [facility] 30 mg 4-09 28-16 capsule by ity of capsule 00:00: 00:00 mouth [place] 00 :00 daily. Medical Branch lisinopril- 2019- No [id number] 1{tbl} Take 1 [facility] hydrochloro 4- 04-14 tablet by it y of thiazide 00:00: 00:00 mouth [place] 20-12.5 mg 00 :00 every Medical per tablet morning. Branc h Vital Signs Vital Name Observation Time Observation Value Comments Source Systolic blood 2021-01-23 19:05:00 121 mm[Hg] [facility] Diastolic blood 2021-01-23 19:05:00 84 [facility]Hg[facility] 2021-01-23 19:05:00 80 /min [facility] Body temperature 2021-01-23 19:05:00 36.83 [facility] Body weight 2021-01-23 19:05:00 79.379 kg [facility] BMI 2021-01-23 19:05:00 29.12 kg/m2 [facility] Oxygen saturation in 2021-01-23 19:05:00 98 /min [facility] Arterial blood by [facility] Pulse oximetry Branch Systolic blood 2020-12-27 17:55:00 124 mm[Hg] [facility] Diastolic blood 2020-12-27 17:55:00 83 mm[Hg] [facility] 2020-12-27 17:55:00 84 /min [facility] Body height 2020-12-27 17:55:00 165.1 cm [facility] Body weight 2020-12-27 17:55:00 77.111 kg [facility] [place] [facility] BMI 2020-12-27 17:55:00 28.29 kg/m2 [facility] [place] [facility] Systolic blood 2020-03-08 16:02:00 114 mm[Hg] [facility] [place] [facility] Diastolic blood 2020-03-08 16:02:00 74 mm[Hg] [facility] [place] [facility] Body temperature 2020-03-08 16:02:00 36.17 Elli [facility] [place] [facility] Respiratory rate 2020-03-08 16:02:00 18 /min [facility] Body height 2020-03-08 16:02:00 162.6 cm [facility] Body weight 2020-03-08 16:02:00 74.39 kg [facility] BMI 2020-03-08 16:02:00 28.15 kg/m2 [facility] Oxygen saturation in 2020-03-08 16:02:00 99 /min [facility] Arterial blood by [place] [facility] Pulse oximetry Branch Systolic blood 2020-03-08 16:02:00 114 mm[Hg] [facility] [place] [facility] Diastolic blood 2020-03-08 16:02:00 74 mm[Hg] [facility] [place] [facility] Body temperature 2020-03-08 16:02:00 36.17 Elli [facility] [place] [facility] Respiratory rate 2020-03-08 16:02:00 18 /min [facility] [place] [facility] Body height 2020-03-08 16:02:00 162.6 cm [facility] Body weight 2020-03-08 16:02:00 74.39 kg [facility] [place] [facility] BMI 2020-03-08 16:02:00 28.15 kg/m2 [facility] [place] [facility] Oxygen saturation in 2020-03-08 16:02:00 99 /min [facility] Arterial blood by [employer] [facility] Pulse oximetry Branch Systolic blood 2019-05-13 19:28:00 121 mm[Hg] [facility] [place] [facility] Diastolic blood 2019-05-13 19:28:00 77 mm[Hg] [facility] Heart rate 2019-05-13 19:28:00 96 /min [facility] Respiratory rate 2019-05-13 19:28:00 18 /min [facility] Body height 2019-05-13 19:28:00 167.6 cm [facility] Body weight 2019-05-13 19:28:00 73.483 kg [facility] BMI 2019-05-13 19:28:00 26.15 kg/m2 [facility] Procedures Procedure Date / Time Performing Clinician Source Performed CT ABDOMEN WO CONTRAST 2021-01-26 21:23:42 Alyssa Gray [facility] CT ABDOMEN WO CONTRAST 2021-01-26 21:23:42 Alyssa Gray [facility] REFERRAL- 2020-11-01 06:01:00 Doctor Unassigned, No [facility] REQUEST/RESPONSE Name Medical [place] ASSIGNMENT OF BENEFITS 2020-08-08 20:27:09 Doctor Unassigned, No [facility] Medical Branch NOTICE OF BILLING 2020-07-25 18:53:57 Doctor Unassigned, No [facility] PRACTICES FOR MEDICARE Name [facility] [place] PATIENTS BI UPRIGHT STEREOTACTIC 2020-07-25 18:28:48 Khari Zavala [facility] CORE BREAST BIOPSY RIGHT Medical Branch BI ULTRASOUND BREAST 2020-07-14 18:34:04 Khari Zavala [facility] COMPLETE RIGHT Medical Branch BI DIAGNOSTIC 2020-07-14 17:30:00 Khari Zavala [facility] TOMOSYNTHESIS RIGHT Medical Bran ch BI SCREENING 2020-07-06 16:20:56 Khari Zavala [facility] TOMOSYNTHESIS BILATERAL Medical Branch POCT URINALYSIS 2020-03-08 16:10:00 Angela Gale [place] o [facility] EXTERNAL PROVIDER 2019-11-13 06:01:00 Doctor Unassigned, No [facility] RECORDS Name Medical [place] Plan of Care Planned Activity Planned Date Details Comments Source Future Scheduled 2026-03-02 Screening for [facility] Test 00:00:00 malignant neoplasm of Medica l Branch colon (procedure) [code = 690794989] Future Scheduled 2026-03-02 Screening for [facility] Test 00:00:00 malignant neoplasm of Medica l Branch colon (procedure) [code = 800429397] Future Scheduled 2021-12-27 Depression screening [facility] Test 00:00:00 (procedure) [code = Medical Branch [id number]] Future Scheduled 2021-07-06 Screening for [facility] Test 00:00:00 malignant neoplasm of Medica l Branch breast (procedure) [code = 989172890] Future Scheduled 2021-05-24 [facility] Test 00:00:00 (Season Ended) [code = Medic al Branch INFLUENZA VACCINE (Season Ended)] Future Scheduled 2020 Medicare Annual [facility] Test 00:00:00 Wellness Visit Medical [facility] h (procedure) [code = 458555164732388] Future Scheduled 2020 Screening for [facility] Test 00:00:00 osteoporosis Medical Branch (procedure) [code = [id number]] Future Scheduled 2020 [facility]00 65+ (1 of 1 - PPSV23) Medica l Branch [code = PNEUMOCOCCAL VACCINES 65+ (1 of 1 - PPSV23)] Future Scheduled 2010 Screening for [facility] Test 00:00:00 malignant neoplasm of Medica l Branch lung (procedure) [code = 004129518] Future Scheduled 2005 [facility] blood in feces Medical [facility] h (procedure) [code = 968988114] Future Scheduled 2005 Stool DNA-based [facility] Test 00:00:00 colorectal cancer Medical Br anch screening (procedure) [code = 593561108317273] Future Scheduled 2005 Flexible fiberoptic Univ ersThe [facility] Test 00:00:00 sigmoidoscopy Medical Branch (procedure) [code = 35302445] Future Scheduled 2005 Zoster Recombinant [facility] Test 00:00:00 Vaccine (SHINGRIX) (1 Medica l Branch of 2) [code = Zoster Recombinant Vaccine (SHINGRIX) (1 of 2)] Future Scheduled 1974 DTaP,Tdap,and Td [facility] [place] Test 00:00:00 Vaccines (1 - Tdap) Medical Branch [code = DTaP,Tdap,and Td Vaccines (1 - Tdap)] Future Scheduled 1973 Hepatitis C screening [facility] [place] Test 00:00:00 (procedure) [code = Medical Branch 244562460] Future Scheduled 1971 SARS-CoV-2 (COVID-19) [facility] [place] Test 00:00:00 Vaccine (1) [code = Medical Branch SARS-CoV-2 (COVID-19) Vaccine (1)] Encounters Start End Encounter Admission Attending Care Care Encounter Source Date/Time Date/Time Type Type Clinicians Facility Department ID 2021-09-12 2021-09-12 [facility] 1.2.840.114 [id number] Univers 00:00:00 00:00:00 [facility] [id number] it y of Rodney AYERS [id number] Kevin as PROFESSIO [phone] Mo cynthia[address] OFFICE BUILDING ONE 2021-07-24 2021-07-24 Outpatient [facility] [id number] Univers 08:47:07 23:59:00 KHARI ity [facility] 2021-07-24 2021-07-24 [facility] 1.2.301.925 [id number] Univers 08:47:07 23:59:00 Encounter Khari BONITA [id number] ity of [place] AB[place] 4.2.7.2.686 [place] [facility] [phone] [address] 2021-07-24 2021-07-24 Outpatient [facility] [id number]-20 Univers 09:00:00 09:00:00 KHARI [id number] ity of [facility] 2021-07-12 2021-07-12 [facility] 1.2.840.114 [id number] Univers 00:00:00 00:00:00 [facility] [id number] it y of [place] Ayers 4.2.7.2.686 Kevin as Mohit?Blea [phone] Me dicghanshyam kney [address] [place] [address] Medical Office Building 2021-05-15 2021-05-15 [facility] [id number] Univers 16:00:00 16:00:00 MICA [id number] ity [facility] 2021-05-15 2021-05-15 [facility] [id number] Univers 16:00:00 16:00:00 [facility] 2021-05-01 2021-05-01 [facility] 1.2.840.114 [id number] Univers 00:00:00 00:00:00 Mica [facility] [id number] it y of Surgical 4.2.7.2.686 Kevin as Specialti [phone] Mo cynthiaghanshyam es 198 [facility] 2021-04-14 2021-04-14 Outpatient R [facility] [id number] Univers 08:20:00 08:20:00 [id number] ity [facility] 2021-04-14 2021-04-14 Outpatient R [facility] [id number] Univers 08:20:00 08:20:00 ity of [facility] 2021-04-14 2021-04-14 Outpatient R [facility] [id number] Univers 08:20:00 08:20:00 [facility] 2021-04-10 2021-04-10 [facility]phone [facility] 1.2.840.114 [id number] Univers 00:00:00 00:00:00 [facility] [id number] it y of [place] Ayers 4.2.7.2.686 Kevin as Professio [phone] Mo cynthiaal nal [address] [place] Office Building One 2021-01-26 2021-01-26 [facility] 1.2.084.419 [id number] Univers 16:05:07 23:59:00 Encounter Alyssa Ayers [id number] ity of [place].2.[place] [phone] [address] 2021-01-26 2021-01-26 Outpatient R [facility] [id number]-20 Univers 16:30:00 16:30:00 ALYSSA [id number] ity o robbin [facility] 2021-01-26 2021-01-26 Outpatient Nury GRAY [facility] [id number] Univers 00:00:00 00:00:00 ALYSSA siegel [facility] 2021-01-23 2021-01-23 Office [facility] 1.2.840.114 [id number] Univers 13:53:14 14:46:23 Visit Alyssa [place] [id number] ity of [place] 4.2.7.2.686 [place] Profess[place] [phone] Mo dic[address] 2021-01-23 2021-01-23 Outpatient Nury [facility] [id number]-20 Univers 14:00:00 14:00:00 ALYSSA [id number] gonzález o robbin [facility] 2021-01-23 2021-01-23 Outpatient Nury [facility] [id number] Univers 14:00:00 14:00:00 ALYSSA siegel [facility] 2020-12-27 2020-12-27 [facility], [facility] Po I [facility] 1.2. 840.114 [id number] Univers 13:15:49 13:35:49 Visit SilvanomitzimichelleKhari parris [facility] 350.1.13 .10 ity of [place] 4.2.7.2.686 Kevin as Professio [phone] [address] Office [facility] One 2020-12-27 2020-12-27 Office [facility] 1.2.840.114 [id number] Univers 12:51:16 13:06:16 Visit [facility] 350.1.13.10 it y of [place] 4.2.7.2.686 Kevin as Professio [phone] [address] One 2020-12-27 2020-12-27 Outpatient R [facility] [id number]-20 Univers 13:00:00 13:00:00 KHARI [id number] ity [facility] 2020-12-27 2020-12-27 Outpatient R SALLY [facility] [id number] Univers 13:00:00 13:00:00 KHARI ity [facility] 2020-11-28 2020-11-28 Patient Adair [facility] 1.2.840.114 [id number] Univers 00:00:00 00:00:00 Outreach Paulo PRIMARY 350.1.13.10 i ty of [facility] 4.2.7.2.686 [place] [facility] [phone] Mo dical [address] [place] 2020-11-01 2020-11-01 Orders Doctor LUIS 1.2.840.114 [id number] Univers 00:00:00 00:00:00 Only Unassigned, JERMAIN 350.1.13.10 ity of [place] [facility] 4.2.7.2.686 Kevin as [phone] [facility] [address] [place] 2020-11-01 2020-11-01 Orders Doctor LUIS 1.2.840.114 [id number] 00:00:00 00:00:00 Only Unassigned, JERMAIN 350.1.13.10 [place] [facility] 4.2.7.2.686 [id number] 009 2020-08-08 2020-08-08 Houseman 1, Adc Lab [facility] 1.2.840.114 [id number] Univers 14:30:18 14:45:18 Visit Franck Petty 350.1.13.10 ity [facility] 4.2.7.2.686 [place] [phone] [facility] [address] [place] 2020-08-08 2020-08-08 Houseman 1, Adc Lab [facility] 1.2.840.114 [id number] 14:30:18 14:45:18 Visit Mary 350.1.13.10 [place] 4.2.7.2.686 [place] [phone] 353 2020-08-08 2020-08-08 Outpatient R [facility] [id number] Univers 14:45:00 14:45:00 ity [facility] 2020-08-08 2020-08-08 Outpatient R [facility] [id number] Univers 14:20:00 14:20:00 [id number] ity of [facility] 2020-08-08 2020-08-08 Orders Doctor LUIS 1.2.840.114 [id number] Univers 00:00:00 00:00:00 Only Unassigned, JERMAIN 350.1.13.10 ity of [place] [facility] 4.2.7.2.686 Kevin as [phone] [facility] [address] [place] 2020-08-08 2020-08-08 Orders Doctor LUIS 1.2.840.114 [id number] 00:00:00 00:00:00 Only Unassigned, JERMAIN 350.1.13.10 [place] [facility] 4.2.7.2.686 [id number] [facility] 2020-08-04 2020-08-04 Telephone [facility] 1.2.840.114 [id number] [facility] 00:00:00 00:00:00 Khari Health 350.1.13.10 it y of [place] 4.2.7.2.686 Kevin as Professio [phone] Mo dical [address] Office Building One 2020-08-04 2020-08-04 Telephone [facility] 1.2.840.114 [id number] 00:00:00 00:00:00 Khari Health 350.1.13.10 [place] 4.2.7.2.686 Professio [phone] [place] [address] Office Building One 2020-07-25 2020-07-[address] [facility] 1.2.840.114 [id number] Univers 09:49:03 23:59:00 Encounter Khari Colvin HEALTH 350.1.13.10 ity of [place] CLINICS [place]2.7.2.[place] [phone] [facility] [address] [place] 2020-07-25 2020-07-[address] [facility] 1.2.840.114 [id number] 09:49:03 23:59:00 Encounter Khari Marii HEALTH 350.1.13.10 Edward CLINICS 4.2.7.2.686 [id number] 800 2020-07-25 2020-07-25 Outpatient R [facility] [id number]-20 Univers 00:00:00 00:00:00 KHARI ity [facility] 2020-07-25 2020-07-25 Outpatient R [facility] [id number] Univers 00:00:00 00:00:00 KHARI ity [facility] 2020-07-14 2020-07-14 [facility] 1.2.840.114 [id number] Univers 09:40:00 23:59:00 Encounter Khari Colvin HEALTH 350.1.13.10 ity of [place] CL[place]ICS [place].2.[place] [phone] [address] 2020-07-14 2020-07-14 [facility] 1.2.840.114 [id number] 09:40:00 23:59:00 Encounter Khari Colvin HEALTH 350.1.13.10 Edward CLINICS 4.2.7.2.686 [id number] [facility][note 2] 2020-07-14 2020-07-14 Outpatient [facility] [id number]-20 Univers 10:00:00 10:00:00 KHARI [id number] ity [facility] 2020-07-14 2020-07-14 [facility] 1.2.840.114 [id number] Univers 09:14:13 09:39:00 Encounter Khari Colvin HEALTH 350.1.13.10 ity of [place] CL[place]ICS 4[place]2.[place].2.[place] [phone] [address] 2020-07-14 2020-07-14 [facility] 1.2.840.114 [id number] 09:14:13 09:39:00 Encounter Khari Colvin HEALTH 350.1.13.10 [place] CLINICS 4.2.7.2.686 [id number] [facility][note 2] 2020-07-14 2020-07-14 Outpatient [facility] [id number] Univers 00:00:00 00:00:00 KHARI [facility] 2020-07-14 2020-07-14 [facility] 1.2.840.114 [id number] Univers 00:00:00 00:00:00 Khari Health 350.1.13.10 it y of [place] 4.2.7.2.686 Kevin as Professio [phone] Mo dical [place] [address] Branch Office Building One 2020-07-14 2020-07-14 [facility] 1.2.840.114 [id number] 00:00:00 00:00:00 Khari Health 350.1.13.10 [place] 4.2.7.2.686 Professio [phone] [place] [address] Office Building One 2020-07-07 2020-07-07 [facility] 1.2.840.114 [id number] Univers 00:00:00 00:00:00 Khari Health 350.1.13.10 it y of [place] 4.2.7.2.686 Kevin as Professio [phone] Mo dical [address] Office Building One 2020-07-07 2020-07-07 [facility] 1.2.840.114 [id number] 00:00:00 00:00:00 Khari Health 350.1.13.10 [place] 4.2.7.2.686 Professio [phone] [place] [address] Office Building [facility] 2020-07-06 2020-07-06 [facility] 1.2.728.305 [id number] [facility] 08:35:22 23:59:00 Encounter Khari Ayers 350.1.13.10 ity of [place].2.686 [place] [phone] [address] 2020-07-06 2020-07-06 [facility] 1.2.348.337 [id number] 08:35:22 23:59:00 Encounter Khari Ayers 350.1.13.10 Edparris Abad 4.2.7.2.686 [place] [id number] [facility][note 2] 2020-07-06 2020-07-06 Outpatient Nury ZAVALA [facility] [id number]-20 Univers 00:00:00 00:00:00 KHARI [id number] [facility] 2020-07-06 2020-07-06 Outpatient Nury ZAVALA [facility] [id number] Univers 00:00:00 00:00:00 KHARI [facility] 2020-06-20 2020-06-20 Telephone [facility] 1.2.840.114 [id number] Univers 00:00:00 00:00:00 Khari Health 350.1.13.10 it y of [place] 4.2.7.2.686 Kevin as Professio [phone] Mo dic[address] Office Building One 2020-06-20 2020-06-20 Telephone [facility] 1.2.840.114 [id number] 00:00:00 00:00:00 Khari Health 350.1.13.10 [place] 4.2.7.2.686 Professio [phone] [place] [address] Office Building One 2020-05-15 2020-05-15 [facility] 1.2.840.114 [id number] Univers 00:00:00 00:00:00 Khari Health 350.1.13.10 it y of [place] 4.2.7.2.686 Kevin as Professio [phone] [address] Office Building One 2020-05-15 2020-05-15 Refill [facility] 1.2.840.114 [id number] 00:00:00 00:00:00 Khari Health 350.1.13.10 [place] 4.2.7.2.686 Professio [phone] [place] [address] Office Building One 2020-04-12 2020-04-12 [facility] 1.2.840.114 [id number] Univers 00:00:00 00:00:00 Khari Health 350.1.13.10 it y of [place] 4.2.7.2.686 Kevin as Professio [phone] [address] Office Building One 2020-04-12 2020-04-12 [facility] 1.2.840.114 [id number] 00:00:00 00:00:00 Khari Health 350.1.13.10 [place] 4.2.7.2.686 Professio [phone] [place] [address] Office Building One 2020-04-11 2020-04-11 [facility] 1.2.840.114 [id number] [facility] 00:00:00 00:00:00 [facility] 350.1.13.10 it y of [place] 4.2.7.2.686 Kevin as Professio [phone] [address] Office Building [facility] 2020-04-11 2020-04-11 [facility] 1.2.840.114 [id number] 00:00:00 00:00:00 [facility] 350.1.13.10 [place] 4.2.7.2.686 Professio [phone] [place] [address] Office Building One 2020-03-08 2020-03-08 Urgent Pob1, Acute Care Clinic [facility] 1. 2.840.114 [id number] Univers 10:52:23 16:56:54 [facility] 350.1.13.10 ity of [place] 4.2.7.2.686 Kevin as Professio [phone] [address] Office Building One 2020-03-08 2020-03-08 Urgent Pob1, Acute [facility] 1.2.840.114 [id number] 10:52:23 16:56:54 [facility] 350.1.13.10 [place] 4.2.7.2.686 Professio [phone] [place] [address] Office Building [facility] 2020-03-08 2020-03-08 Outpatient R [facility] [id number] Univers 11:00:00 11:00:00 [id number] ity of [facility] 2020-03-08 2020-03-08 Outpatient R [facility] [id number] Univers 11:00:00 11:00:00 ity of [facility] 2020-03-07 2020-03-07 [place] [facility] 1.2.840.114 [id number] Univers 00:00:00 00:00:00 [facility] 350.1.13.10 it y of [place] 4.2.7.2.686 Kevin as Professio [phone] [address] Office Building One 2020-01-12 2020-01-12 [facility] 1.2.840.114 [id number] Univers 00:00:00 00:00:00 Khari [place] 350.1.13.10 i ty of [place] 4.2.7.2.[place] Profess[place] [phone] Mo dical nal 044 [facility] 2020-01-05 2020-01-05 Refill [facility] 1.2.840.114 [id number] Univers 00:00:00 00:00:00 Khari [facility] 350.1.13.10 it y of [place] 4.2.7.2.686 Kevin as Professio [phone] Mo dical nal [address] [place] Office [facility] 2019-11-13 2019-11-13 Orders Doctor LUIS 1.2.840.114 [id number] Univers 00:00:00 00:00:00 Only Unassigned, JERMAIN 350.1.13.10 ity of [place] [facility] 4.2.7.2.686 Kevin as [phone] [address] 2019-11-11 2019-11-11 Telephone [facility] 1.2.840.114 [id number] [facility] 00:00:00 00:00:00 [facility] 350.1.13.10 it y of [place] 4.2.7.2.686 Kevin as Professio [phone] Mo dical nal 044 [facility] 2019-05-13 2019-05-13 Hospital [facility] 1.2.840.114 [id number] [facility] 14:46:56 23:59:00 Encounter Mica Qureshi 350.1.13.10 ity of Surgical 4.2.7.2.686 Kevin as Specialti [phone] Mo dical es 809 [facility] 2019-05-13 2019-05-13 Office [facility] 1.2.046.343 [id number] Univers 14:11:13 14:58:05 Visit Mica Qureshi 350.1.13.10 it y of Surgical 4.2.7.2.686 Kevin as Specialti [phone] Mo dical es 198 [facility] Results Test Description Test Test Results Result Source Time Comments Comments CT ABDOMEN WO 2021-01- [facility], Radiant Results University of CONTRAST 06 Inft User - [facility] 21:34:26 01/26/2021 4:35 PM Branc h CDTCT Abdomen without contrast.CLINICAL HISTORY: History of fall onto dog gate 2 weeks ago with lump andtenderness in the upper abdomen..TECHNIQUE: Multidetector helical CT acquisition was obtained from the lungbases to the greater trochanters without oral and IV contrast. The imageswere reviewed in lung, bone, and soft tissue windows.FINDINGS: Absence of intravenous contrast limits evaluation of the solidorgans. Evaluation of the bowel is also limited by lack of oral contrast. Lower lungs: Clear. No pleural effusion or pericardial effusion.Liver, Gallbladder and Spleen: Liver is enlarged, 19 cm in length andspleen is of normal size, 9.8 x 3.5 cm. No focal lesions visualized in theliver or in the spleen except for calcified granulomas in the right andleft lobe of the liver noted. No calcified gallstones. Biliary ducts andthe pancreatic duct appear of normal size.Peritoneum: No free air or free fluid. No lymphadenopathy.Pancr eas and Adrenals: Unremarkable pancreas and adrenal glands.Kidneys and Ureters: No visible calculi in the renal collecting systems. No hydroureter or hydronephrosis. Vessels: Mild atherosclerosis of lower aorta and iliac arteries withtortuous vessels.Retroperitone um: No abnormal fluid or lymphadenopathy.Bowel : Visualized intestinal gas pattern appears normal. Bones: Shallow Schmorl's nodes are seen in all visualized thoracic andupper lumbar vertebral endplates secondary to remote trauma.Grade 1 spondylolisthesis noted at L3-L4. Degenerative disc disease notedat L4-L5, L5-S1, less at L3-L4.Soft tissues: Soft tissue contusion noted in the left side of theepigastric region with an oval shaped 3.9 x 1.5 cm size hematoma with fluidlevel.CONCLUSION :1. Subacute 3.9 x 1.5 cm size hematoma in the left side of the epigastricregion with mild congestion in the surrounding subcutaneous fat.2. Hepatomegaly. CT ABDOMEN 2021-01- CT Abdomen without Uni versity of CONTRAST 06 contrast. CLINICAL [facility] 21:34:26 HISTORY: History of Branc h fall onto dog gate 2 weeks ago with lump andtenderness in the upper abdomen.. TECHNIQUE: Multidetector helical CT acquisition was obtained from the lungbases to the greater trochanters without oral and IV contrast. ?The imageswere reviewed in lung, bone, and soft tissue windows. FINDINGS: ?Absence of intravenous contrast limits evaluation of the solidorgans. Evaluation of the bowel is also limited by lack of oral contrast. Lower lungs: Clear. No pleural effusion or pericardial effusion. Liver, Gallbladder and Spleen: Liver is enlarged, 19 cm in length andspleen is of normal size, 9.8 x 3.5 cm. No focal lesions visualized in theliver or in the spleen except for calcified granulomas in the right andleft lobe of the liver noted. No calcified gallstones. Biliary ducts andthe pancreatic duct appear of normal size. Peritoneum: ?No free air or free fluid. No lymphadenopathy. Pancreas and Adrenals: ?Unremarkable pancreas and adrenal glands. Kidneys and Ureters: ?No visible calculi in the renal collecting systems. No hydroureter or hydronephrosis. ? Vessels: Mild atherosclerosis of lower aorta and iliac arteries withtortuous vessels. Retroperitoneum: No abnormal fluid or lymphadenopathy. Bowel: Visualized intestinal gas pattern appears normal. Bones: Shallow Schmorl's nodes are seen in all visualized thoracic andupper lumbar vertebral endplates secondary to remote trauma.Grade 1 spondylolisthesis noted at L3-L4. Degenerative disc disease notedat L4-L5, L5-S1, less at L3-L4. Soft tissues: Soft tissue contusion noted in the left side of theepigastric region with an oval shaped 3.9 x 1.5 cm size hematoma with fluidlevel. CONCLUSION:1. Subacute 3.9 x 1.5 cm size hematoma in the left side of the epigastricregion with mild congestion in the surrounding subcutaneous fat.2. Hepatomegaly. [place], Radiant Results Inft User - 01/26/2021 4:35 PM CDTCT Abdomen without contrast.CLINICAL HISTORY: History of fall onto dog gate 2 weeks ago with lump andtenderness in the upper abdomen..TECHNIQUE: Multidetector helical CT acquisition was obtained from the lungbases to the greater trochanters without oral and IV contrast. The imageswere reviewed in lung, bone, and soft tissue windows.FINDINGS: Absence of intravenous contrast limits evaluation of the solidorgans. Evaluation of the bowel is also limited by lack of oral contrast. Lower lungs: Clear. No pleural effusion or pericardial effusion.Liver, Gallbladder and Spleen: Liver is enlarged, 19 cm in length andspleen is of normal size, 9.8 x 3.5 cm. No focal lesions visualized in theliver or in the spleen except for calcified granulomas in the right andleft lobe of the liver noted. No calcified gallstones. Biliary ducts andthe pancreatic duct appear of normal size.Peritoneum: No free air or free fluid. No lymphadenopathy.Pancr eas and Adrenals: Unremarkable pancreas and adrenal glands.Kidneys and Ureters: No visible calculi in the renal collecting systems. No hydroureter or hydronephrosis. Vessels: Mild atherosclerosis of lower aorta and iliac arteries withtortuous vessels.Retroperitone um: No abnormal fluid or lymphadenopathy.Bowel : Visualized intestinal gas pattern appears normal. Bones: Shallow Schmorl's nodes are seen in all visualized thoracic andupper lumbar vertebral endplates secondary to remote trauma.Grade 1 spondylolisthesis noted at L3-L4. Degenerative disc disease notedat L4-L5, L5-S1, less at L3-L4.Soft tissues: Soft tissue contusion noted in the left side of theepigastric region with an oval shaped 3.9 x 1.5 cm size hematoma with fluidlevel.CONCLUSION :1. Subacute 3.9 x 1.5 cm size hematoma in the left side of the epigastricregion with mild congestion in the surrounding subcutaneous fat.2. Hepatomegaly. UPRIGHT 2020-07- Examination:[facility] STERE[facility]ACTIC CORE 02 UPRIGHT STEREOTACTIC [facility] BREAST BIOPSY 19:33:49 CORE BREAST BIOPSY [facility] RIGHT RIGHT The procedure was explained to the patient including benefits and alternatives. ?The risks, including but not limited to infection and bleeding, were reviewed and the patient agreed to undergo the procedure, signing the consent form. ?Timeout was performed. History:Patient is a 64 year old year old female and is seen for: ? Abnormal mammogram. Comparisons: 07/14/2020 BI ULTRASOUND BREAST COMPLETE RIGHT, 07/14/2020 BI DIAGNOSTIC TOMOSYNTHESIS RIGHT, 07/06/2020 BI SCREENING TOMOSYNTHESIS BILATERAL, 12/11/2017 SCREENING DIGITAL BREAST [place], and 08/13/2016 DIGITAL MAMMOGRAM, SCREENING Recent exam with the following findings: Right: ?There is a 9 mm focal asymmetry (with new associated punctate and amorphous calcifications) in the right breast at 8 o'clock, posterior depth, 8 cm from the nipple. This is best seen on RLM 47/78, RSLM 41/66, and RSCC 21/64. Upright stereotactic biopsy is recommended. ?BIRADS 4A. ?CURRENT EXAM: The patient was upright position for the biopsy. ?The area of interest was localized and targeted via lateral approach utilizing digital spot mammography with computer calculation. After antiseptic preparation the skin puncture site was infiltrated with lidocaine. ?Deep local anesthesia about the biopsy site was administered using lidocaine with epinephrine. ?A skin incision was made. ?A 9 gauge Eviva vacuum-assisted automated core biopsy needle was inserted to the computer determined depth, and stereotactic images showed satisfactory relationship of the needle position to the targeted calcifications at 8 o'clock, posterior depth, 8 cm from the nipple. ?Tissue cores were obtained. ?Digital specimen radiography showed calcifications within some of the cores. ?A TOP HAT shaped tissue marker clip was deployed through the needle, and the needle was withdrawn. Post biopsy mammogram confirmed the clip approximately 3 cm LATERAL to the biopsy site on the post biopsy RCC view (a few residual calcifications are noted at the biopsy site). ?The biopsy clip is at the biopsy site on the post biopsy RLM view. Recommendation:Oneil neely pathology results - Right tissue sampling of the right breast calcifications at 8 o'clock, posterior depth, 8 cm from the nipple. BIRADS 4A. Top Hat shaped clip, as above. ? BI DIAGNOSTIC 2020-06- Examination:BI [facility] TOMOS[facility] 22 [facility]TR[facility]OUND BREAST [place] [facility] RIGHT 20:42:39 COMPLETE RIGHTBI Branch DIAGNOSTIC TOMOSYNTHESIS RIGHT History:Patient is 64 year old and is seen for: ?Abnormal mammogram. ? Comparisons: 07/06/2020 BI SCREENING TOMOSYNTHESIS BILATERAL, 12/11/2017 SCREENING DIGITAL BREAST [place], and 08/13/2016 DIGITAL MAMMOGRAM, SCREENING Recent exam with the following findings: Impression:Focal 9 mm asymmetry in upper outer RIGHT breast with fine calcifications. This may be normal dense tissue, however, ultrasound evaluation requested to rule out a developing small mass. CURRENT EXAM: Findings:BI DIAGNOSTIC TOMOSYNTHESIS RIGHTThe right breast has scattered areas of fibroglandular density. There is a 9 mm focal asymmetry seen in the right breast at 8 o'clock in the posterior depth, 8 cm from the nipple. There are associated grouped punctate and amorphous calcifications associated with this focal asymmetry. Right Breast Ultrasound- Survey ultrasound of the right breast and axilla was performed. ?No sonographic correlate is noted for the 9 mm focal asymmetry at 8 o'clock, 8 cm from the nipple. The remainder of the right breast and right axillary ultrasound is unremarkable. Impression: Right: ?There is a 9 mm focal asymmetry (with new associated punctate and amorphous calcifications) in the right breast at 8 o'clock, posterior depth, 8 cm from the nipple. This is best seen on RLM 47/78, RSLM 41/66, and RSCC 21/64. Upright stereotactic biopsy is recommended. ?BIRADS 4A. Recommendation:Uprigh t stereotactic biopsy - Right ? BI-RADS Category: Right 4A - Suspicious Abnormality - Biopsy Should Be Considered - Low Suspicion for Malignancy BI ULTRASOUND 2020-06- Examination:BI [facility] BREAST COMPLETE 22 ULTRASOUND BREAST [place] [facility] RIGHT 20:42:37 COMPLETE RIGHTBI Branch DIAGNOSTIC TOMOSYNTHESIS RIGHT History:Patient is 64 year old and is seen for: ?Abnormal mammogram. ? Comparisons: 07/06/2020 BI SCREENING TOMOSYNTHESIS BILATERAL, 12/11/2017 SCREENING DIGITAL BREAST [place], and 08/13/2016 DIGITAL MAMMOGRAM, SCREENING Recent exam with the following findings: Impression:Focal 9 mm asymmetry in upper outer RIGHT breast with fine calcifications. This may be normal dense tissue, however, ultrasound evaluation requested to rule out a developing small mass. CURRENT EXAM: Findings:BI DIAGNOSTIC TOMOSYNTHESIS RIGHTThe right breast has scattered areas of fibroglandular density. There is a 9 mm focal asymmetry seen in the right breast at 8 o'clock in the posterior depth, 8 cm from the nipple. There are associated grouped punctate and amorphous calcifications associated with this focal asymmetry. Right Breast Ultrasound- Survey ultrasound of the right breast and axilla was performed. ?No sonographic correlate is noted for the 9 mm focal asymmetry at 8 o'clock, 8 cm from the nipple. The remainder of the right breast and right axillary ultrasound is unremarkable. Impression: Right: ?There is a 9 mm focal asymmetry (with new associated punctate and amorphous calcifications) in the right breast at 8 o'clock, posterior depth, 8 cm from the nipple. This is best seen on RLM 47/78, RSLM 41/66, and RSCC 21/64. Upright stereotactic biopsy is recommended. ?BIRADS 4A. Recommendation:Uprigh t stereotactic biopsy - Right ? BI-RADS Category: Right 4A - Suspicious Abnormality - Biopsy Should Be Considered - Low Suspicion for Malignancy BI SCREENING 2020-06- Examination:BI [facility] TOMOSYNTHESIS 14 SCREENING [place] [facility] BILATERAL 17:09:57 TOMOSYNTHESIS Branch BILATERAL History:Patient is 64 year old and is seen for: ?Screening. Computer-aided detection (CAD) utilized. Comparisons: 12/11/2017 SCREENING DIGITAL BREAST [place] and 08/13/2016 DIGITAL MAMMOGRAM, SCREENING Findings:The breasts have scattered areas of fibroglandular density. RightThere is a 9 mm focal asymmetry seen in the upper outer quadrant of the right breast in the posterior depth, 8.3 cm from the nipple on the CC view. There are amorphous calcifications in a grouped distribution seen in the upper outer quadrant of the right breast in the posterior depth, 8.3 cm from the nipple on the CC view. Compared to the previous study, there are no significant changes. LeftThere is a focal asymmetry seen in the upper outer quadrant of the left breast in the posterior depth. Compared to the previous study, there are no significant changes. There is no evidence of suspicious masses, calcifications, or other abnormal findings in the left breast. Impression:Focal 9 mm asymmetry in upper outer RIGHT breast with fine calcifications. This may be normal dense tissue, however, ultrasound evaluation requested to rule out a developing small mass. Recommendation:Annual mammographic follow-up - LeftAnnual mammographic follow-up - RightUltrasound - Right BI-RADS Category: Left: 2 - BenignRight: 0 - Incomplete: Needs Additional Imaging EvaluationOverall: 0 - Incomplete: Needs Additional Imaging Evaluation POCT URINALYSIS W SPECIFIC GRAVITY 2020-03-08 16:11:00 Test Item Value Reference Range Interpretation Comme nts POCT U SP GRAV (test code = 3255) 1.000 mg/dl 1.005-1.025 A POCT PH U (test code = 3254) 6 mg/dl 5-8 POCT U LEUK EST (test code = 3263) + Negative - Negative POCT U NIT (test code = 3262) pos Negative - Negative POCT U PROT (test code = 3259) neg Negative - Negative POCT U GLU (test code = 3256) normal Negative - Negative POCT U KETONE (test code = 3258) neg Negative - Negative POCT U UROBILI (test code = 3260) normal 0.2-1 POCT U BILI (test code = 3261) + Negative - Negative POCT U BLD (test code = 3257) trace Negative - Negative POCT U COLOR (test code = 3266) dark yellow POCT U APPEAR (test code = 3267) cloudy Lab Interpretation (test code = 99815-1) Abnormal [facility] URINALYSIS W SPECIFIC [id number] 16:11:00 Test Item Value Reference Range Interpretation Comments POCT U SP GRAV (test code = 1.000 mg/dl 1.005-1.025 A 3255) POCT PH U (test code = 3254) 6 mg/dl 5-8 POCT U LEUK EST (test code = + Negative - Negative 3263) POCT U NIT (test code = 3262) pos Negative - Negative POCT U PROT (test code = neg Negative - Negative 3259) POCT U GLU (test code = 3256) normal Negative - Negative POCT U KETONE (test code = neg Negative - Negative 3258) POCT U UROBILI (test code = normal 0.2-1 3260) POCT U BILI (test code = + Negative - Negative 3261) POCT U BLD (test code = 3257) trace Negative - Negative POCT U COLOR (test code = dark yellow 3266) POCT U APPEAR (test code = cloudy 3267) Lab Interpretation (test code Abnormal = 05472-4) [facility] URINALYSIS W SPECIFIC [id number] 16:11:00 Test Item Value Reference Range Interpretation Comments POCT U SP GRAV (test code = 1.000 mg/dl 1.005-1.025 A 3255) POCT PH U (test code = 3254) 6 mg/dl 5-8 POCT U LEUK EST (test code = + Negative - Negative 3263) POCT U NIT (test code = 3262) pos Negative - Negative POCT U PROT (test code = neg Negative - Negative 3259) POCT U GLU (test code = 3256) normal Negative - Negative POCT U KETONE (test code = neg Negative - Negative 3258) POCT U UROBILI (test code = normal 0.2-1 3260) POCT U BILI (test code = + Negative - Negative 3261) POCT U BLD (test code = 3257) trace Negative - Negative POCT U COLOR (test code = dark yellow 3266) POCT U APPEAR (test code = cloudy 3267) Lab Interpretation (test code Abnormal = 68274-7) [facility]
[2022-01-04] MEDS ORDERED: ONDANSETRON 4 MG/2 ML VIAL ONE (11:10)
[2022-01-04] MEDS ORDERED: ASPIRIN 81 MG CHEWABLE TABLET ONE (11:10)
[2022-01-04 11:26] LABS: Absolute Lymphocytes (CBC) 2.2 K/uL (0.7-4.9); Hematocrit 40.1 % (36.0-45.0); Lymphocytes % 25.8 % (15.3-44.8); MPV 7.2 fL (7.6-11.3); RBC Red Blood Cell Count 4.65 M/uL (3.86-4.86)
[2022-01-04 11:44] LABS: ALT/SGPT 31 U/L (12-78); AST/SGOT 19 U/L (15-37); Alkaline Phosphatase 54 U/L (45-117); BUN Blood Urea Nitrogen 25 mg/dL (7-18); Bicarbonate 20 mmol/L (21-32); Bilirubin Total 0.4 mg/dL (0.2-1.0); Glucose Level 113 mg/dL (74-106); Magnesium 2.1 mg/dL (1.8-2.4); NT PRO-BNP 14 pg/mL (<125); Potassium 3.4 mmol/L (3.5-5.1); Sodium Level 138 mmol/L (136-145)
[2022-01-04 11:47] LABS: Bilirubin Direct < 0.1 mg/dL (0-0.2); Troponin High Sensitivity < 3.0 pg/mL (<58.9)
[2022-01-04] MEDS ORDERED: NA CHLORIDE 0.9% 500 ML ONE (12:14)
[2022-01-04] MEDS ORDERED: MAGNES/ALUMIN/SIMET 30ML UCUP ONE (12:14)
[2022-01-04] MEDS ORDERED: LIDOCAINE VISCOUS 2% SOLN 15 ML UDC ONE (12:14)
--- NOTE | 2022-01-04 12:21 | RAD REPORT ---
EXAM DESCRIPTION: RAD - Chest Single View - 01/04/2022 12:08 pm CLINICAL HISTORY: CHEST PAIN COMPARISON: None available TECHNIQUE: AP portable chest image was obtained 01/04/2022 12:08 pm . FINDINGS: Lungs are clear. Heart and vasculature are normal. No measurable pleural effusion and no p neumothorax. No acute bony abnormality seen. No acute aortic findings suspected. IMPRESSION: No acute cardiopulmonary process.
--- NOTE | 2022-01-04 14:38 | EDPHYS ---
Physician Documentation [facility] Name: Vivienne Watts Age: 66 yrs Sex: Female : 1955 Arrival Date: 01/04/2022 Time: 10:47 Bed 3 Private MD: SHANTI Physician Jose Montenegro HPI: 01/04 11:45 This 66 yrs old Female presents to ER via Wheelchair with complaints of Chest Pain, jr8 Nausea. 11:45 The patient or guardian reports chest pain that is located primarily in the substernal jr8 area. Onset: acutely, today. The pain does not radiate. Associated signs and symptoms: Pertinent positives: nausea. The chest pain is described as causing indigestion, a pressure. Duration: The patient or guardian reports multiple episodes. Modifying factors: The symptoms are alleviated by nothing. the symptoms are aggravated by nothing. Severity of pain: At its worst the pain was moderate in the emergency department the pain is unchanged. The patient has not experienced similar symptoms in the past. The patient has not recently seen a physician. Historical: - Allergies: 11:01 Celexa; jd3 - Home Meds: 11:01 lisinopril-hydrochlorothiazide oral [Active]; atorvastatin oral [Active]; jd3 - PMHx: 11:01 Hypertensive disorder; jd3 - Immunization history:: Adult Immunizations up to date, Client reports having NOT received the Covid vaccine. Flu vaccine is not up to date. - Social history:: Smoking status: Patient/guardian denies using tobacco, but has a distant history of tobacco abuse. ROS: 11:45 Eyes: Negative for injury, pain, redness, and discharge, ENT: Negative for injury, jr8 pain, and discharge, Neck: Negative for injury, pain, and swelling, Respiratory: Negative for shortness of breath, cough, wheezing, and pleuritic chest pain, Back: Negative for injury and pain, MS/Extremity: Negative for injury and deformity, Skin: Negative for injury, rash, and discoloration, Neuro: Negative for headache, weakness, numbness, tingling, and seizure. 11:45 Cardiovascular: Positive for chest pain, Negative for edema, orthopnea, palpitations, paroxysmal nocturnal dyspnea. 11:45 Abdomen/GI: Positive for nausea, Negative for abdominal pain, vomiting, diarrhea. Exam: 11:45 Constitutional: This is a well developed, well nourished patient who is awake, alert, jr8 and in no acute distress. Neck: Trachea midline, no thyromegaly or masses palpated, and no cervical lymphadenopathy. Supple, full range of motion without nuchal rigidity, or vertebral point tenderness. No Meningismus. Cardiovascular: Regular rate and rhythm with a normal S1 and S2. No gallops, murmurs, or rubs. Normal PMI, no JVD. No pulse deficits. Respiratory: Lungs have equal breath sounds bilaterally, clear to auscultation and percussion. No rales, rhonchi or wheezes noted. No increased work of breathing, no retractions or nasal flaring. Abdomen/GI: Soft, non-tender, with normal bowel sounds. No distension or tympany. No guarding or rebound. No evidence of tenderness throughout. Back: No spinal tenderness. No costovertebral tenderness. Full range of motion. Skin: Warm, dry with normal turgor. Normal color with no rashes, no lesions, and no evidence of cellulitis. MS/ Extremity: Pulses equal, no cyanosis. Neurovascular intact. Full, normal range of motion. Neuro: Awake and alert, GCS 15, oriented to person, place, time, and situation. Motor strength 5/5 in all extremities. Sensory grossly intact. 11:45 ECG was reviewed by the Attending Physician. Vital Signs: 11:02 BP 148 / 104; Pulse 80; Resp 19 S; Temp 97.9(TE); Pulse Ox 98% on R/A; Weight 68.04 kg jd3 (R); Height 5 ft. 6 in. (167.64 cm) (R); Pain 5/10; 12:18 BP 117 / 95; Pulse 80; Resp 19 S; Pulse Ox 99% on R/A; jd3 13:10 BP 126 / 91; Pulse 66; Resp 16 S; Pulse Ox 98% on R/A; jd3 15:08 BP 112 / 90; Pulse 67; Resp 16 S; Pulse Ox 100% on R/A; jd3 11:02 Body Mass Index 24.21 (68.04 kg, 167.64 cm) jd3 MDM: 10:55 Patient medically screened. jr8 12:53 The patient was given aspirin in the Emergency Department. Data reviewed: vital signs, [facility] nurses notes, lab test result(s), EKG, radiologic studies, plain films. Data interpreted: Pulse oximetry: on room air is 99 %. Interpretation: normal. Counseling: I had a detailed discussion with the patient and/or guardian regarding: the historical points, exam findings, and any diagnostic results supporting the discharge/admit diagnosis, lab results, radiology results. ED course: Patient feeling better after GI cocktail. Discussed initial labs including troponin which were all unremarkable at this time. Chest x-ray stable and EKG without acute findings. Will repeat troponin at the 4-hour lis to ensure that there is been no marked elevation. If stable will go home at that time and follow-up with cardiology. Patient good with that as well.. 14:36 ED course: Second troponin negative. Patient remains hemodynamically stable and jr8 comfortable at this time. Will send home to follow-up with cardiology family practice.. 01/04 10:54 Order name: Basic Metabolic Panel; Complete Time: 11:58 01/04 10:54 Order name: CBC with Diff; Complete Time: 11:47 01/04 10:54 Order name: LFT's; Complete Time: 58 01/04 10:54 Order name: Magnesium; Complete Time: :58 01/04 10:54 Order name: NT PRO-BNP; Complete Time: :58 01/04 10:54 Order name: Troponin HS; Complete Time: 58 01/04 10:54 Order name: XRAY Chest (1 view); Complete Time: 12:52 01/04 10:54 Order name: EKG; Complete Time: 10:55 01/04 10:54 Order name: Cardiac monitoring; Complete Time: :01/04 12:49 Order name: Troponin High Sensitivity: draw \T\ 1400; Complete Time: 14:36 [facility] 01/04 10:54 Order name: EKG - Nurse/Tech; Complete Time: 11:01/04 10:54 Order name: IV Saline Lock; Complete Time: 11:12 01/04 10:54 Order name: Labs collected and sent; Complete Time: 11:01/04 10:54 Order name: O2 Per Protocol; Complete Time: :01/04 10:54 Order name: O2 Sat Monitoring; Complete Time: 11:04 jr8 EC:45 Rate is 86 beats/min. Rhythm is regular, Sinus Rhythm. QRS [place] is Normal. PA interval jr8 is normal at 140 msec. QRS interval is normal at 74 msec. QT interval is normal at 380 msec. No Q waves. T waves are Normal. No ST changes noted. Clinical impression: Normal ECG. Interpreted by me. Reviewed by me. Administered Medications: 11:13 Drug: Aspirin Chewable Tablet 324 mg Route: PO; jd3 12:10 Follow up: Response: No adverse reaction jd3 11:13 Drug: Zofran (Ondansetron) 4 mg Route: IVP; Site: right antecubital; jd3 12:10 Follow up: Response: No adverse reaction; Nausea is decreased jd3 12:17 Drug: NS 0.9% 500 ml Route: IV; Rate: bolus; Site: right antecubital; jd3 15:09 Follow up: Response: No adverse reaction; IV Status: Completed infusion; IV Intake: jd3 500ml 12:18 Drug: GI Cocktail without - (Maalox Suspension 30 ml, Lidocaine Liquid 2 % 15 jd3 ml) Route: PO; 12:47 Follow up: Response: No adverse reaction jd3 Disposition: 18:52 Co-signature as Attending Physician, Jose Montenegro MD I agree with the assessment and pal plan of care. Disposition Summary: 01/04/22 14:37 Discharge Ordered Location: Home jr8 Problem: new jr8 Symptoms: have improved jr8 Condition: Stable jr8 Diagnosis - Chest pain, unspecified jr8 Followup: jr8 - With: Alfredito Rollins MD - When: 2 - 3 days - Reason: Recheck today's complaints, Continuance of care, Re-evaluation by your physician Discharge Instructions: - Discharge Summary Sheet jr8 - Nonspecific Chest Pain, Adult jr8 Forms: - Medication Reconciliation Form jr8 - Thank You Letter jr8 - Antibiotic Education jr8 - Prescription Opioid Use jr8 Signatures: Dispatcher [employer] Jose Perez MD MD cha Roszak, Josh, PA PA jr8 Joe Kulkarni RN RN jd3
--- NOTE | 2022-01-04 14:38 | ER ---
Nurse's Notes [facility] Name: Vivienne Watts Age: 66 yrs Sex: Female : 1955 Arrival Date: 01/04/2022 Time: 10:47 Bed 3 Private MD: Diagnosis: Chest pain, unspecified Presentation: 01/04 11:00 Chief complaint: Patient states: "I was at work when I started to get this chest pain. jd3 it started off as just nausea, and just started getting a lot worse. I don't know if I just worked myself up to full blown anxiety attack or if there is something wrong. the part that is bothering me the most is the nausea.". Coronavirus screen: At this time, the client does not indicate any symptoms associated with coronavirus-19. Ebola Screen: No symptoms or risks identified at this time. Initial Sepsis Screen: Does the patient meet any 2 criteria? No. Patient's initial sepsis screen is negative. Does the patient have a suspected source of infection? No. Patient's initial sepsis screen is negative. Risk Assessment: Do you want to hurt yourself or someone else? Patient reports no desire to harm self or others. Onset of symptoms was January 04, 2022. 11:00 Method Of Arrival: Wheelchair jd3 11:00 Acuity: THOMAS 3 jd3 Historical: - Allergies: 11:01 Celexa; jd3 - Home Meds: 11:01 lisinopril-hydrochlorothiazide oral [Active]; atorvastatin oral [Active]; jd3 - PMHx: 11:01 Hypertensive disorder; jd3 - Immunization history:: Adult Immunizations up to date, Client reports having NOT received the Covid vaccine. Flu vaccine is not up to date. - Social history:: Smoking status: Patient/guardian denies using tobacco, but has a distant history of tobacco abuse. Screenin:11 Abuse screen: Denies threats or abuse. Nutritional screening: No deficits noted. vg1 Tuberculosis screening: No symptoms or risk factors identified. Fall Risk No fall in past 12 months (0 pts). No secondary diagnosis (0 pts). IV access (20 points). Ambulatory Aid- None/Bed Rest/Nurse Assist (0 pts). Gait- Normal/Bed Rest/Wheelchair (0 pts) Mental Status- Oriented to own ability (0 pts). Total Hopson Fall Scale indicates No Risk (0-24 pts). Assessment: 11:03 General: Appears in no apparent distress. uncomfortable, Behavior is calm, cooperative, jd3 appropriate for age, anxious. Pain: Complains of pain in chest Pain does not radiate. Quality of pain is described as pressure, Pain began suddenly, Also complains of nausea. Neuro: Level of Consciousness is awake, alert, obeys commands, Oriented to person, place, time, situation. Cardiovascular: Capillary refill < 3 seconds Patient's skin is warm and dry. Rhythm is regular. Respiratory: Reports shortness of breath at rest Airway is patent Respiratory effort is even, unlabored, Respiratory pattern is regular, symmetrical, Denies cough. GI: Abdomen is round non-distended, Abd is soft and non tender X 4 quads. Reports nausea. : No signs and/or symptoms were reported regarding the genitourinary system. EENT: No signs and/or symptoms were reported regarding the EENT system. Derm: Skin is intact, Skin is dry, Skin is normal, Skin temperature is warm. Musculoskeletal: Circulation, motion, and sensation intact. Range of motion: intact in all extremities. 12:18 Reassessment: Patient appears in no apparent distress at this time. Patient and/or jd3 family updated on plan of care and expected duration. Pain level reassessed. Patient is alert, oriented x 3, equal unlabored respirations, skin warm/dry/pink. Patient states feeling better. 13:10 Reassessment: Patient appears in no apparent distress at this time. Patient and/or jd3 family updated on plan of care and expected duration. Pain level reassessed. Patient is alert, oriented x 3, equal unlabored respirations, skin warm/dry/pink. Patient states feeling better. 15:07 Reassessment: Patient appears in no apparent distress at this time. Patient and/or jd3 family updated on plan of care and expected duration. Pain level reassessed. Patient is alert, oriented x 3, equal unlabored respirations, skin warm/dry/pink. Patient states feeling better. Patient states symptoms have improved. Vital Signs: 11:02 BP 148 / 104; Pulse 80; Resp 19 S; Temp 97.9(TE); Pulse Ox 98% on R/A; Weight 68.04 kg jd3 (R); Height 5 ft. 6 in. (167.64 cm) (R); Pain 5/10; 12:18 BP 117 / 95; Pulse 80; Resp 19 S; Pulse Ox 99% on R/A; jd3 13:10 BP 126 / 91; Pulse 66; Resp 16 S; Pulse Ox 98% on R/A; jd3 15:08 BP 112 / 90; Pulse 67; Resp 16 S; Pulse Ox 100% on R/A; jd3 11:02 Body Mass Index 24.21 (68.04 kg, 167.64 cm) jd3 ED Course: 10:47 Patient arrived in ED. ds1 10:53 Joe Kulkarni, ELVIA is Primary Nurse. jd3 10:53 Andres Husain PA is PHCP. jr8 10:53 Jose Montenegro MD is Attending Physician. jr8 11:01 Triage completed. jd3 11:03 Arm band placed on. EKG completed in triage. Results shown to MD. jd3 11:08 Initial lab(s) drawn, by me, sent to lab. Inserted saline lock: 20 gauge in right vg1 antecubital area, using aseptic technique. Blood collected. 11:08 Patient maintains SpO2 saturation greater than 95% on room air. vg1 11:11 Patient has correct armband on for positive identification. Placed in gown. Bed in low vg1 position. Call light in reach. Side rails up X 1. Adult w/ patient. monitoring and evaluation advisor on. Pulse ox on. NIBP on. 12:10 XRAY Chest (1 view) In Process Unspecified. EDMS 14:37 Alfredito Rollins MD is Referral Physician. jr8 15:08 No provider procedures requiring assistance completed. IV discontinued, intact, jd3 bleeding controlled, No redness/swelling at site. Pressure dressing applied. Administered Medications: 11:13 Drug: Aspirin Chewable Tablet 324 mg Route: PO; jd3 12:10 Follow up: Response: No adverse reaction jd3 11:13 Drug: Zofran (Ondansetron) 4 mg Route: IVP; Site: right antecubital; jd3 12:10 Follow up: Response: No adverse reaction; Nausea is decreased jd3 12:17 Drug: NS 0.9% 500 ml Route: IV; Rate: bolus; Site: right antecubital; jd3 15:09 Follow up: Response: No adverse reaction; IV Status: Completed infusion; IV Intake: jd3 500ml 12:18 Drug: GI Cocktail without - (Maalox Suspension 30 ml, Lidocaine Liquid 2 % 15 jd3 ml) Route: PO; 12:47 Follow up: Response: No adverse reaction jd3 Intake: 15:09 IV: 500ml; Total: 500ml. jd3 Outcome: 14:37 Discharge ordered by MD. kapoor 15:08 Discharged to home ambulatory, with family. jd3 15:08 Condition: stable 15:08 Discharge instructions given to patient, family, Instructed on discharge instructions, follow up and referral plans. Demonstrated understanding of instructions, follow-up care. 15:09 Patient left the ED. jd3 Signatures: Dispatcher [employer] [facility] Sarika Tabor dsAndres Christy PA PA jr8 Davies, Jonathon, RN RN jd3 Binta Ramos RN RN vg1
[2022-01-04 19:47] VITALS: TEMP 97.9
[2022-01-04 19:52] VITALS: BP 112/90; O2SAT 100
== END 2022-01-04 15:09 | disposition home or self-care (01) ==
LOC: ER 10:46
DX: R07.9 Chest pain, unspecified (principal); R11.0 Nausea; I10 Essential (primary) hypertension; Z88.8 Allergy status to other drugs, medicaments and biological substances
CPT/HCPCS: 96361; 93005; 85025; 80048; 36415; 83735; 80076; 84484 ×2; 83880; 71045; 96374; 99285; J7040; J2405